=== PATIENT | female | born 1950 | race Caucasian/White ===

== ENCOUNTER → 2016-12-04 | Outpatient (CLI) | payer MEDICARE, OTHER ==
--- NOTE | 2016-12-04 13:16 | XR ---
EXAMINATION TYPE: XR KUB DATE OF EXAM: 12/04/2016 COMPARISON: 01/22/2014 INDICATION: kidney stones TECHNIQUE: Single view abdomen supine view FINDINGS: There is a normal bowel gas pattern. Psoas margins are normal. No organomegaly is present. There is a 1.2 cm calcification over the inferior pole of the right kidney. The right kidney appears small. This was present previously. Post fixation pedicle screws and rods are present L4-5. IMPRESSION: 1. 1.2 cm right renal calcification within a small right kidney
== END ==
LOC: RADXRMAIN 11:25
PROVIDERS: ATTEND Physician Assistant
DX: N28.89 Other specified disorders of kidney and ureter (principal)
CPT/HCPCS: 74000

== ENCOUNTER → 2016-12-24 | Outpatient (CLI) | payer MEDICARE, OTHER ==
[2016-12-24 11:55] LABS: Basophils # (A) 0.1 k/uL (0-0.2); Basophils % (A) 1 %; CH 31.7; CHCM 33.1; Eosinophils # (A) 0.2 k/uL (0-0.7); Eosinophils % (A) 2 %; HCT 48.9 % (34.0-46.0); HGB 15.7 gm/dL (11.4-16.0); Luc # (Auto) 0.17; Luc % (Auto) 2; Lymphocytes # (A) 2.6 k/uL (1.0-4.8); Lymphocytes % (A) 29 %; MCH 30.9 pg (25.0-35.0); MCHC 32.1 g/dL (31.0-37.0); MCV 96.4 fL (80.0-100.0); Monocytes # (A) 0.8 k/uL (0-1.0); Monocytes % (A) 8 %; Neutrophils # (A) 5.3 k/uL (1.3-7.7); Neutrophils % (A) 59 %; RBC 5.07 m/uL (3.80-5.40); RDW 14.5 % (11.5-15.5); WBC 9.1 k/uL (3.8-10.6); WBC (Perox) 8.34
[2016-12-24 12:06] LABS: Anion Gap 10 mmol/L; Blood Urea Nitrogen 23 mg/dL (7-17); Calcium 9.7 mg/dL (8.4-10.2); Carbon Dioxide 23 mmol/L (22-30); Chloride 109 mmol/L (98-107); Glucose 81 mg/dL (74-99); Non-African American GFR(MDRD) >60 (>60 ml/min/1.73 sqM); Potassium 4.8 mmol/L (3.5-5.1); Sodium 142 mmol/L (137-145)
== END | disposition home or self-care (01) ==
LOC: LABPAT 11:20
PROVIDERS: ATTEND Physician Assistant
DX: Z01.812 Encounter for preprocedural laboratory examination (principal); N20.0 Calculus of kidney; E78.5 Hyperlipidemia, unspecified; E03.9 Hypothyroidism, unspecified
CPT/HCPCS: 36415; 80048; 85025

== ENCOUNTER 2016-12-31 12:59 | Day surgery (SDC) | payer MEDICARE, OTHER ==
[2016-12-26 09:46] VITALS: BMI 39.1
[~2016-12-31 12:59] MED LIST: DEXAMETHASONE SOD PHOSPHATE 10 MG/ML 1 ML VIAL IV ONE; LACTATED RINGERS 1,000 ML IV SCH; LIDOCAINE 1% 20 ML VIAL (10MG/ML) FOR IV START INTRADERMA PRN; Pre Op ABX Message 1 EACH MISC MISCELLANE ONE
--- NOTE | 2016-12-31 13:06 | XR ---
EXAMINATION TYPE: XR KUB DATE OF EXAM: 12/31/2016 12:53 PM CLINICAL HISTORY: 12/04/2016 TECHNIQUE: Single supine KUB image of the abdomen is obtained. COMPARISON: 12/04/2016 FINDINGS: Scattered gas is seen in non-distended small bowel loops. Gas and fecal material is seen in non-distended colon. 1.0 cm right midpole renal calculus is present as well as at least 2 other smal ler subcentimeter renal calculi are seen within the right kidney. No left-sided renal calculi are see n. Lung bases are clear and the osseous structures are intact. IMPRESSION: 1. Right renal calculus measuring 1.0 cm with additional subcentimeter right renal calculi (at least 2). 2. No left-sided radiopaque renal calculi.
[2016-12-31 13:44] VITALS: BP 120/70; PULSE 73; RESP 18; TEMP 98.4
[2016-12-31 15:10] LABS: Appearance,Urine Cloudy (Clear); Bacteria,Urine Occasional /hpf; Bilirubin,Urine Negative (Negative); Glucose,Urine (UA) Negative (Negative); Ketones,Urine Trace (Negative); Leukocyte Esterase,Urine Large (Negative); Mucus,Urine Rare /hpf; Nitrite,Urine Negative (Negative); Particle Count 9321; Protein,Urine Trace (Negative); RBC,Urine 10 /hpf (0-5); Specific Gravity,Urine 1.015 (1.001-1.035); Squamous Epithelial Cell,Urine 1 /hpf (0-4); UA Billing (MACRO vs. MICRO) MICRO; Urobilinogen,Urine <2.0 mg/dL (<2.0); WBC,Urine >182 /hpf (0-5)
== END 2016-12-31 15:35 | disposition home or self-care (01) ==
LOC: ORWHC2ENDO 12:59
PROVIDERS: ATTEND Urology
DX: N23 Unspecified renal colic (principal); R82.90 Unspecified abnormal findings in urine; I10 Essential (primary) hypertension; I20.9 Angina pectoris, unspecified; Q79.8 Other congenital malformations of musculoskeletal system; E03.9 Hypothyroidism, unspecified; E78.00 Pure hypercholesterolemia, unspecified; E78.5 Hyperlipidemia, unspecified; Z87.442 Personal history of urinary calculi; D35.00 Benign neoplasm of unspecified adrenal gland; Z79.899 Other long term (current) drug therapy
CPT/HCPCS: 81001; 87086; 87077; 87186; 74000; J1100

== ENCOUNTER → 2017-01-28 | Outpatient (CLI) | payer MEDICARE, OTHER ==
--- NOTE | 2017-01-28 10:33 | XR ---
EXAMINATION TYPE: XR abdomen 1V DATE OF EXAM: 01/28/2017 HISTORY: 12/31/2016 Comparison: Pt. states right side lithotripsy x 1 week ago. Single KUB is submitted for interpretation. Findings: Right renal calculi: Several sub-5 mm calculi noted to overlie the lower pole of the right kidney poo rly demonstrated due to overlying bowel content. Previously noted 1 cm calculus is not clearly visual ized at this time. Right ureteral calculi: None Visualized. Left renal calculi: None Visualized. Left ureteral calculi: None Visualized. Pelvic calcifications: None Visualized. Bowel gas pattern is unremarkable. No free air. No mass effects. IMPRESSION: 1. Several sub-5 mm calculi noted to overlie the lower pole of the right kidney poorly demonstrated d ue to overlying bowel content. Previously noted 1 cm calculus is not clearly visualized at this time.
== END | disposition home or self-care (01) ==
LOC: RADXRMAIN 09:57
PROVIDERS: ATTEND Urology
DX: N20.0 Calculus of kidney (principal)
CPT/HCPCS: 74000

== ENCOUNTER → 2018-03-27 | Outpatient (CLI) | payer MEDICARE, OTHER ==
--- NOTE | 2018-03-27 09:42 | XR ---
EXAMINATION TYPE: XR abdomen 1V DATE OF EXAM: 03/27/2018 CLINICAL DATA: 68 year-old female right kidney stones, [facility] COMPARISON: 01/28/2017 FINDINGS: Lung bases are clear. No evidence for free intraperitoneal air. A few scattered colonic air-fluid levels suggesting liquid stool. Cholecystectomy clips. Very vague densities are present in the right mid abdomen measuring up to 4 mm. These may represent n onobstructing right-sided renal calculi. Degenerative changes of the SI joints. L4-L5 posterior lumbar fusion as evidenced. No dilated small bowel loops. IMPRESSION: 1. Vague, small densities in the right mid abdomen suggest underlying right-sided nephrolithiasis. 2. Scattered colonic air-fluid levels suggesting liquid stool. This could reflect enteritis or ileus .
== END ==
LOC: RADXRMAIN 08:24
PROVIDERS: ATTEND Urology
DX: N20.2 Calculus of kidney with calculus of ureter (principal)
CPT/HCPCS: 74018

== ENCOUNTER → 2018-11-06 | Outpatient (CLI) | payer MEDICARE, OTHER ==
--- NOTE | 2018-11-06 10:54 | XR ---
EXAMINATION TYPE: XR KUB DATE OF EXAM: 11/06/2018 10:48 AM CLINICAL HISTORY: History of staghorn calculus with right flank pain. TECHNIQUE: Two supine KUB images of the abdomen are obtained. COMPARISON: Abdominal x-ray March 27, 2018. FINDINGS: On current study there is better visualization of 3-4 scattered right-sided renal calculi m easuring up to 5 mm in size. Left-sided renal calculi not clearly identified. Bridging spurs in the thoracolumbar spine are present. Overall nonspecific but likely nonobstructive bowel gas pattern. Mild to moderate narrowing both hip joints, right greater than left. Postsurgical change L4-L5 level. Overlying bra strap upper abdomen noted. Cholecystectomy clips show motion artifa ct degradation. IMPRESSION: Right-sided nephrolithiasis redemonstrated.
== END | disposition home or self-care (01) ==
LOC: RADXRMAIN 10:22
PROVIDERS: ATTEND Urology
DX: N20.0 Calculus of kidney (principal)
CPT/HCPCS: 74018

== ENCOUNTER 2019-01-24 12:21 | Inpatient (IN) | payer MEDICARE, OTHER ==
--- NOTE | 2019-01-24 12:51 | ED ---
Chest Pain HPI - General Chief Complaint: Chest Pain Stated Complaint: CHEST PAIN, SOB Time Seen by Provider: 01/24/19 12:25 Source: patient Mode of arrival: wheelchair Limitations: no limitations - History of Present Illness Initial Comments: The patient is a 68-year-old female past medical history of asthma, CVA and hypertension who presents emergency department with reported chest pain, nausea, shortness of breath and headache. She states that the symptoms started today when she woke up. She reported having tightness in her chest which she thought was related to her asthma. She's been using her nebulizers at home without improvement in her symptoms. Does admit to a mild cough. No fevers or chills. No ripping or tearing sensation to her back. Denies a history of DVT or PE. She denies any lower extremity edema. Began feeling nauseated and has had multiple episodes of belching. She took 2 Tylenol which she stated afterwards developed a "splitting" headache. She denies any neck pain or stiffness. No fevers or chills. No sick contacts or recent travel. Denies any dizziness. No unilateral numbness or weakness. No vomiting. Denies diaphoresis. No weakness in her upper or lower extremities. Denies any abdominal pain or changes in her bowel or bladder habits. There are no other alleviating, precipitating or modifying factors - Related Data Home Medications Medication Instructions Recorded Confirmed Gabapentin [Neurontin] 100 mg PO QAM 09/11/13 01/24/19 Clopidogrel [Plavix] 75 mg PO HS 09/21/13 01/24/19 Montelukast [Singulair] 10 mg PO HS 05/02/15 01/24/19 Thyroid,Pork [[place] Thyroid] 60 mg PO DAILY 05/31/15 01/24/19 Diltiazem HCl 60 mg PO TID 01/24/19 01/24/19 Furosemide [Lasix] 20 mg PO DAILY 01/24/19 01/24/19 Gabapentin [Neurontin] 200 mg PO HS 01/24/19 01/24/19 Previous Rx's Medication Instructions Recorded Cefuroxime Axetil [Ceftin] 500 mg PO BID 3 Days #6 tab 01/27/19 guaiFENesin SYRUP 100MG/5ML 200 mg PO Q6H PRN #12 cup 01/27/19 [Robitussin] predniSONE 10 mg PO DIRECTED #30 tab 01/27/19 Allergies Allergy/AdvReac Type Severity Reaction Status Date / Time adhesive Allergy Rash/Hives Verified 01/24/19 15:00 arsenic [Arsenic] Allergy Anaphylaxis Verified 01/24/19 15:00 Iodinated Contrast Media Allergy Anaphylaxis Verified 01/24/19 15:00 [Iodinated Contrast Media - IV Dye] ear drops Allergy Unknown SWELLING Uncoded 12/31/16 13:31 OF EAR. IV therapy for UTI AdvReac Unknown CPK Uncoded 12/31/16 13:31 ELEVATED AND MUSCLE WEAKNESS. Review of Systems ROS Statement: Those systems with pertinent positive or pertinent negative responses have been documented in the HPI. ROS Other: All systems not noted in ROS Statement are negative. EKG Findings - EKG Comments: EKG Findings:: EKG demonstrates a sinus rhythm with occasional premature ventricular complexes. There is a right bundle branch block. Rate of 89. UT interval 180. QRS 152. QTC of 49. No acute ST segment elevations. Compared patient's previous exam and patient did have a right bundle branch block in 2016 Past Medical History Past Medical History: Asthma, CVA/TIA, Hypertension, Liver Disease, Renal Disease, Skin Disorder, Thyroid Disorder Additional Past Medical History / Comment(s): Recent UTI and pneumonia-resolved now. 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 Still has pancreas and kidney problems. CVAx2 last in 2010- lt index finger still numb. hx eczema. Hx kidney stones. 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 torn retina History of Any Multi-Drug Resistant Organisms: MRSA Date of last positivie culture/infection: 2011 MDRO Source:: lt foot Past Surgical History: Adenoidectomy, Appendectomy, Back Surgery, Cholecystectomy, Heart Catheterization, Hysterectomy, Joint Replacement, Orthopedic Surgery, Tonsillectomy Additional Past Surgical History / Comment(s): Hx back surgery with rods and screws 1991, had lt foot surgery 30 years ago then had lt foot surgery 2011 and developed MRSA at surgical site. Hx Repair of Rt Renal artery aneurysm , then had stents inserted into rt renal artery. Also has stents between pancreas and bile duct r/t arsenic exposure. 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 Past Psychological History: No Psychological Hx Reported Smoking Status: Never smoker Past Alcohol Use History: Occasional Past Drug Use History: None Reported - Past Family History Father Family Medical History: Cancer Mother Family Medical History: Cancer, CVA/TIA Additional Family Medical History / Comment(s): melanoma General Exam Limitations: no limitations General appearance: alert, in no apparent distress Head exam: Present: atraumatic, normocephalic, normal inspection Eye exam: Present: normal appearance, PERRL, EOMI. Absent: scleral icterus, conjunctival injection, periorbital swelling ENT exam: Present: normal exam, mucous membranes moist Neck exam: Present: normal inspection. Absent: tenderness, meningismus, lymphadenopathy Respiratory exam: Present: wheezes, decreased breath sounds, prolonged expiratory. Absent: respiratory distress, rales, rhonchi, stridor Cardiovascular Exam: Present: regular rate, normal rhythm, normal heart sounds. Absent: systolic murmur, diastolic murmur, rubs, gallop, clicks GI/Abdominal exam: Present: soft, normal bowel sounds. Absent: distended, tenderness, guarding, rebound, rigid Extremities exam: Present: normal inspection, full ROM, normal capillary refill. Absent: tenderness, pedal edema, joint swelling, calf tenderness Back exam: Present: normal inspection Neurological exam: Present: alert, oriented X3, CN II-XII intact Psychiatric exam: Present: normal affect, normal mood Skin exam: Present: warm, dry, intact, normal color. Absent: rash Course Vital Signs 01/24/19 01/24/19 01/24/19 12:24 12:37 13:00 Temperature 98 F Pulse Rate 88 85 89 Respiratory 18 23 20 Rate Blood Pressure 125/74 140/98 O2 Sat by Pulse 94 L 95 93 L Oximetry 01/24/19 01/24/19 01/24/19 13:30 13:32 13:49 Temperature Pulse Rate 85 87 92 Respiratory 16 16 Rate Blood Pressure 152/93 155/92 O2 Sat by Pulse 92 L 99 Oximetry 01/24/19 01/24/19 01/24/19 13:50 15:30 17:22 Temperature Pulse Rate 89 93 Respiratory 18 Rate Blood Pressure 146/82 O2 Sat by Pulse 90 L 88 L Oximetry 01/24/19 18:37 Temperature 98.7 F Pulse Rate 92 Respiratory 16 Rate Blood Pressure 148/87 O2 Sat by Pulse 94 L Oximetry Chest Pain MDM - MDM On arrival the patient was placed in room 13. A thorough history and physical exam was performed. Patient was satting 92% on room air. I did recommend a DuoNeb breathing treatment. Peripheral IV was established. The patient was given 10 mg of Reglan, 25 mg of Benadryl, 1 g of magnesium and 125 mg of Solu- Medrol. I recommended laboratory studies first patient did agree to. White count is 22,000. Coags are normal. CMP is unremarkable. First troponin is negative. BNP is 459. Chest x-ray is obtained and according to radiologist's there are coarse lung markings with relative poor inspiration which appears similar old exam. I do compare the patient's chest x-ray to her previous and it does appear markedly different in my opinion. The patient does have bilateral hazy opacities noted in the lower lung oliva. This may represent interstitial fluid versus infiltrate. Because the patient does have an elevated white blood cell count I did recommend blood cultures and initiating the patient Rocephin and azithromycin as she hasn't been hospitalized recently. Patient did agree to this. After her breathing treatment was administered I did reevaluate her. Her pulse ox is worsens in the patient stats 85-88% on room air. She is placed on 2 L nasal cannula. The patient was also for a CT of her brain because of her new onset migraine. Does demonstrate multiple old bilateral cortical infarct with no active disease process. I discussed diagnosis, differential and treatment options. The patient reports that her headache is gone at this time. I informed her with the elevated white blood cell count report of headache, meningitis needs to be ruled out. Patient refused a lumbar puncture. She is aware of refusing the procedure and the risks to include permanent disability and even . is at bedside agrees with her decision. I will treat the patient's white blood cell count to tracheobronchitis versus pneumonia. I called and discussed the case with Dr. Benton who accepted admission for the patient. Bridging orders are placed. I will continue breathing treatments every 4 hours. Also continue steroids. He requested that I consult cardiology and pulmonology. The patient was given 40 mg of Lasix. She remained in stable condition was transported to the floor Disposition Clinical Impression: Chest pain, Hypoxia, Leukocytosis Disposition: ADMITTED IP TO THIS HOSP Condition: Stable Is patient prescribed a controlled substance at d/c from ED?: No Decision to Admit Reason: Admit from EC Decision Date: 01/24/19 Decision Time: 17:34
[2019-01-24] MEDS ORDERED: METOCLOPRAMIDE 5 MG/ML 2 ML VIAL IVP STA (13:06)
[2019-01-24] MEDS ORDERED: methylPREDNISolone SOD SUCCI 125 MG/2 ML VIAL IV STA (13:06)
[2019-01-24] MEDS ORDERED: diphenhydrAMINE 50 MG/ML 1 ML VIAL IVP STA (13:06)
[2019-01-24] MEDS ORDERED: MAGNESIUM SULFATE-D5W PMX 1 GM in DEXTROSE/WATER 1 100ML.BAG IVPB ONE (13:07)
[2019-01-24] MEDS ORDERED: IPRATROPIUM-ALBUTEROL 3 ML NEB INHALATION STA (13:08)
--- NOTE | 2019-01-24 14:46 | XR ---
EXAMINATION TYPE: XR chest 2V DATE OF EXAM: 01/24/2019 COMPARISON: 06/02/2015 HISTORY: Chest pain TECHNIQUE: Frontal and lateral views of the chest are obtained. FINDINGS: There is some coarsening of the lung markings. Heart size is normal. There is no pleural e ffusion. Bony thorax is intact. IMPRESSION: Coarse lung markings with relative poor inspiration. This appears similar to old exam. N o pulmonary consolidation or heart failure. Mild atelectasis left lung base unchanged.
--- NOTE | 2019-01-24 14:49 | CT ---
EXAMINATION TYPE: CT brain wo con DATE OF EXAM: 01/24/2019 COMPARISON: None HISTORY: Dizziness and SEE CT DLP: 1182.4 mGycm Automated exposure control for dose reduction was used. FINDINGS: Ventricles of normal size. There is no mass effect nor midline shift. There is 2 centimeter cortical hypodensity right posterior temporal lobe. There is 3 cm cortical hypodensity left occipital lobe. Th is is consistent with old infarcts. There is 2.5 cm cortical hypodensity left posterior frontal lobe consistent with old cortical infarct. There is no midline shift. There is no sign of intracranial hem orrhage. There is 1.5 cm hypodense area right cerebellar hemisphere consistent with old cortical infa rct. The cerebellar tentorium. IMPRESSION: MULTIPLE OLD BILATERAL CORTICAL INFARCTS. NO HEMORRHAGE.
[2019-01-24 15:06] LABS: INR 0.9 (<1.2); Prothrombin Time 9.7 sec (9.0-12.0)
[2019-01-24 15:10] LABS: Albumin 4.1 g/dL (3.5-5.0); Calcium 9.5 mg/dL (8.4-10.2); Magnesium 2.2 mg/dL (1.6-2.3); Potassium 4.1 mmol/L (3.5-5.1); Total Bilirubin 0.8 mg/dL (0.2-1.3); Total Protein 7.8 g/dL (6.3-8.2)
[2019-01-24 15:21] LABS: Basophils # (A) 0.2 k/uL (0-0.2); Basophils % (A) 1 %; Eosinophils # (A) 0.1 k/uL (0-0.7); Eosinophils % (A) 0 %; HCT 45.4 % (34.0-46.0); HGB 15.3 gm/dL (11.4-16.0); Lymphocytes # (A) 3.1 k/uL (1.0-4.8); Lymphocytes % (A) 14 %; MCH 31.7 pg (25.0-35.0); MCHC 33.7 g/dL (31.0-37.0); MCV 94.3 fL (80.0-100.0); Mean Platelet Volume 7.3; Monocytes # (A) 1.3 k/uL (0-1.0); Monocytes % (A) 6 %; Neutrophils # (A) 17.1 k/uL (1.3-7.7); Neutrophils % (A) 77 %; Platelet Count 264 k/uL (150-450); RBC 4.81 m/uL (3.80-5.40); RDW 13.2 % (11.5-15.5); WBC 22.2 k/uL (3.8-10.6)
[2019-01-24] MEDS ORDERED: cefTRIAXone IN SWFI 1,000 MG/10 ML SYRINGE IVP STA (16:51)
[2019-01-24] MEDS ORDERED: AZITHROMYCIN 500 MG in SODIUM CHLORIDE 0.9% 250 ML IVPB STA (16:51)
[2019-01-24] MEDS ORDERED: NALOXONE 0.4 MG/ML 1 ML VIAL IV PRN (17:02)
[2019-01-24] MEDS ORDERED: ACETAMINOPHEN TAB 325 MG TAB PO PRN (17:02)
[2019-01-24] MEDS ORDERED: IBUPROFEN 400 MG TAB PO PRN (17:02)
[2019-01-24] MEDS ORDERED: FUROSEMIDE 10 MG/ML 4 ML VIAL IV STA (17:38)
[2019-01-24] MEDS: MONTELUKAST 10 MG TAB PO SCH (20:10)
[2019-01-24] MEDS: CLOPIDOGREL 75 MG TAB PO SCH (20:10)
[2019-01-24] MEDS: DILTIAZEM ORAL 60 MG TAB PO SCH (20:10)
[2019-01-24] MEDS: GABAPENTIN 100 MG CAP PO SCH (20:10)
[2019-01-24] MEDS: IPRATROPIUM-ALBUTEROL 3 ML NEB INHALATION SCH ×2 (20:21→23:45)
[2019-01-24 20:44] LABS: Glucose,Whole Blood 215 mg/dL (75-99)
[2019-01-24] MEDS: INSULIN ASPART (NovoLOG) 100 UNIT/ML VIAL SQ SCH (20:46)
--- NOTE | 2019-01-24 21:16 | P.HPIM ---
History of Present Illness H&P Date: 01/24/19 Chief Complaint: Chest discomfort and headache Patient is a 68-year-old female with a known history of asthma, CVA/TIA, hypothyroidism, hypertension, history of ITP and splenectomy at age 2 and morbid obesity came to ER with the complaints of chest discomfort and shortness of breath since last night. Today morning she woke up with worsening symptoms of chest tightness which she felt more like her previous asthma exacerbation. Patient tried using nebulizers at home without much improvement. Patient also presented with headache to ER. Denied any fever or chills. Patient does have cough without sputum production. No nausea vomiting or abdominal pain or diarrhea. No dysuria. Denied any worsening leg swelling. Patient was also having tried using belching. Denied any recent illnesses or upper respiratory infections. No sick contacts or recent travel. Patient says that she was wheezing at home. Patient was given a dose of IV Solu-Medrol and breathing treatments in the ER. Patient was also hypoxic with pulse ox 88% on room air. Patient is not on home oxygen. Patient follows with Dr. ROSEANN Knapp as an outpatient. Patient says that she had fluid in the lung sometime in June 2018. Patient does take Lasix 20 mg daily at home. BNP 459 on admission. Troponin 1 negative. WBC 22.2 Chest x-ray showed Course lung markings with related to poor inspiration. this appears to be similar to old exam. No pulmonary consolidation or heart failure. Mild left base atelectasis unchanged. CT head showed multiple bilateral old cortical infarcts. No hemorrhages. Review of Systems Constitutional: Patient denies any fever or chills . No generalized weakness or weight loss. Abdomen: Patient denied nausea vomiting and diarrhea and abdominal pain. Cardiovascular: Patient denies any chest pain . Does have chest discomfort. no palpitations. Respiratory: Patient does have cough with minimal sputum production and shortness of breath Neurologic: Patient denied any numbness or tingling. patient did have headache. Musculoskeletal: Patient denies any complaints of joint swelling or deformity. Skin: Negative Psychiatric: Negative Endocrine: No heat or cold intolerance. No recent weight gain. Genitourinary: No dysuria or hematuria. All other 14 point ROS negative except the above Past Medical History Past Medical History: Asthma, CVA/TIA, Hypertension, Liver Disease, Renal Disease, Skin Disorder, Thyroid Disorder Additional Past Medical History / Comment(s): Recent UTI and pneumonia-resolved now. 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 Still has pancreas and kidney problems. CVAx2 last in 2010- lt index finger still numb. hx eczema. Hx kidney stones. 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 torn retina History of Any Multi-Drug Resistant Organisms: MRSA Date of last positivie culture/infection: 2011 MDRO Source:: lt foot Past Surgical History: Adenoidectomy, Appendectomy, Back Surgery, Cholecystectomy, Heart Catheterization, Hysterectomy, Joint Replacement, Orthopedic Surgery, Tonsillectomy Additional Past Surgical History / Comment(s): Hx back surgery with rods and screws 1991, had lt foot surgery 30 years ago then had lt foot surgery 2011 and developed MRSA at surgical site. Hx Repair of Rt Renal artery aneurysm , then had stents inserted into rt renal artery. Also has stents between pancreas and bile duct r/t arsenic exposure. 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 Past Psychological History: No Psychological Hx Reported Smoking Status: Never smoker Past Alcohol Use History: Occasional Past Drug Use History: None Reported - Past Family History Father Family Medical History: Cancer Mother Family Medical History: Cancer, CVA/TIA Additional Family Medical History / Comment(s): melanoma Medications and Allergies Home Medications Medication Instructions Recorded Confirmed Type Gabapentin [Neurontin] 100 mg PO QAM 09/11/13 01/24/19 History Clopidogrel [Plavix] 75 mg PO HS 09/21/13 01/24/19 History Montelukast [Singulair] 10 mg PO HS 05/02/15 01/24/19 History Thyroid,Pork [[place] Thyroid] 60 mg PO DAILY 05/31/15 01/24/19 History Diltiazem HCl 60 mg PO TID 01/24/19 01/24/19 History Furosemide [Lasix] 20 mg PO DAILY 01/24/19 01/24/19 History Gabapentin [Neurontin] 200 mg PO HS 01/24/19 01/24/19 History Allergies Allergy/AdvReac Type Severity Reaction Status Date / Time adhesive Allergy Rash/Hives Verified 01/24/19 15:00 arsenic [Arsenic] Allergy Anaphylaxis Verified 01/24/19 15:00 Iodinated Contrast Media Allergy Anaphylaxis Verified 01/24/19 15:00 [Iodinated Contrast Media - IV Dye] ear drops Allergy Unknown SWELLING Uncoded 12/31/16 13:31 OF EAR. IV therapy for UTI AdvReac Unknown CPK Uncoded 12/31/16 13:31 ELEVATED AND MUSCLE WEAKNESS. Physical Exam Vitals: Vital Signs Temp Pulse Pulse Resp BP BP Pulse Ox 01/24/19 20:21 49 L 01/24/19 19:35 98 F 109 H 20 147/83 93 L 01/24/19 18:37 98.7 F 92 16 148/87 94 L 01/24/19 17:22 88 L 01/24/19 15:30 93 18 146/82 90 L 01/24/19 13:50 89 01/24/19 13:49 92 16 155/92 99 01/24/19 13:32 87 01/24/19 13:30 85 16 152/93 92 L 01/24/19 13:00 89 20 140/98 93 L 01/24/19 12:37 85 23 95 01/24/19 12:24 98 F 88 18 125/74 94 L Intake and Output 01/24/19 01/24/19 01/24/19 06:59 14:59 22:59 Other: Weight 127.006 kg PHYSICAL EXAMINATION: Patient is lying in the bed comfortably, no acute distress, awake alert and oriented.. HEENT: Normocephalic. Neck is supple. Pupils reactive. Nostrils clear. Oral cavity is moist. Ears reveal no drainage. Neck reveals no JVD, carotid bruits, or thyromegaly. CHEST EXAMINATION: Trachea is central. Symmetrical expansion. Left basilar crackles and diffuse coarse breath sounds. Minimal expiratory wheeze. CARDIAC: Normal S1, S2 with no gallops. No murmurs ABDOMEN: Soft. Obese., Bowel sounds normal. No organomegaly. No abdominal bruits. Extremities: 1+ edema. No clubbing or cyanosis Neurologically awake, alert, oriented x3 with well-coordinated movements. No focal deficits noted Skin: No rash or skin lesions. Psychiatric: Coperative. Nonsuicidal Musculoskeletal: No joint swelling or deformity. Normal range of motion. Results CBC & Chem 7: 01/24/19 14:24 01/24/19 14:24 Labs: Abnormal Lab Results - Last 24 Hours (Table) 01/24/19 01/24/19 01/24/19 Range/Units 14:24 14:24 20:43 WBC 22.2 H (3.8-10.6) k/uL Neutrophils # 17.1 H (1.3-7.7) k/uL Monocytes # 1.3 H (0-1.0) k/uL BUN 20 H (7-17) mg/dL POC Glucose (mg/dL) 215 H (75-99) mg/dL Thrombosis Risk Factor Assmnt - DVT/VTE Prophylaxis DVT/VTE Prophylaxis: Pharmacologic Prophylaxis ordered Assessment and Plan Assessment: Chest discomfort and shortness of breath likely due to acute asthma exacerbation Acute hypoxic respiratory failure secondary to asthma exacerbation Possible left lower lobe pneumonia with significant leukocytosis at 22.2 Headache on admission. 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 Continue with antibiotics in the form of ceftriaxone and azithromycin. BNP level was not very elevated at 495. Was given a dose of IV Lasix. Continue with home dose of Lasix 20 mg daily. Check urinalysis. Continue with oxygen therapy as needed and follow closely. Pulmonary and cardiology was consulted. Further recommendations based on the clinical course. Prognosis is guarded at this time. Time with Patient: Greater than 30
[2019-01-24] MEDS: HEPARIN SODIUM,PORCINE 5,000 UNIT/ML 1 ML VIAL SQ SCH (23:05)
[2019-01-25 03:16] LABS: Basophils % (A) 0 %; Eosinophils # (A) 0.1 k/uL (0-0.7); Eosinophils % (A) 1 %; HCT 44.3 % (34.0-46.0); HGB 14.9 gm/dL (11.4-16.0); Lymphocytes # (A) 1.3 k/uL (1.0-4.8); Lymphocytes % (A) 9 %; MCH 31.5 pg (25.0-35.0); MCHC 33.8 g/dL (31.0-37.0); MCV 93.4 fL (80.0-100.0); Mean Platelet Volume 6.3; Monocytes # (A) 0.1 k/uL (0-1.0); Monocytes % (A) 1 %; Neutrophils # (A) 12.2 k/uL (1.3-7.7); Neutrophils % (A) 88 %; Platelet Count 319 k/uL (150-450); RBC 4.74 m/uL (3.80-5.40); RDW 13.2 % (11.5-15.5); WBC 13.8 k/uL (3.8-10.6)
[2019-01-25 03:28] LABS: Appearance,Urine Clear (Clear); Bilirubin,Urine Negative (Negative); Blood,Urine Negative (Negative); Color,Urine Yellow; Glucose,Urine (UA) Negative (Negative); Hyaline Casts,Urine 5 /lpf (0-2); Ketones,Urine Negative (Negative); Leukocyte Esterase,Urine Large (Negative); Mucus,Urine Rare /hpf; Nitrite,Urine Negative (Negative); Protein,Urine Negative (Negative); RBC,Urine 3 /hpf (0-5); Specific Gravity,Urine 1.014 (1.001-1.035); Urobilinogen,Urine <2.0 mg/dL (<2.0)
[2019-01-25 03:34] LABS: Calcium 9.2 mg/dL (8.4-10.2); Potassium 3.7 mmol/L (3.5-5.1)
[2019-01-25] MEDS: IPRATROPIUM-ALBUTEROL 3 ML NEB INHALATION SCH ×5 (03:57→20:37)
[2019-01-25 06:27] LABS: Glucose,Whole Blood 169 mg/dL (75-99)
[2019-01-25] MEDS: INSULIN ASPART (NovoLOG) 100 UNIT/ML VIAL SQ SCH ×4 (06:39→21:24)
[2019-01-25] MEDS: BUDESONIDE 0.5 MG/2 ML NEBU INHALATION SCH ×2 (07:11→20:37)
[2019-01-25] MEDS: GABAPENTIN 100 MG CAP PO SCH ×2 (08:19→20:21)
[2019-01-25] MEDS: methylPREDNISolone SOD SUCCI 40 MG/ML 1 ML VIAL IV SCH ×3 (08:19→23:57)
[2019-01-25] MEDS: HEPARIN SODIUM,PORCINE 5,000 UNIT/ML 1 ML VIAL SQ SCH ×3 (08:19→23:57)
[2019-01-25] MEDS: DILTIAZEM ORAL 60 MG TAB PO SCH ×3 (08:19→20:21)
[2019-01-25] MEDS: THYROID, PORK 30 MG TAB PO SCH (08:20)
[2019-01-25] MEDS ORDERED: FUROSEMIDE 20 MG TAB PO SCH (09:00)
[2019-01-25] MEDS: FUROSEMIDE 20 MG TAB PO SCH (09:29)
--- NOTE | 2019-01-25 11:30 | P.CRDCN ---
History of Present Illness History of present illness: HISTORY OF PRESENTING ILLNESS This is a pleasant 68-year-old female past medical history significant for hypertension, dyslipidemia, hypothyroidism, PFO and CVA. She presented with chest pain, shortness of breath and cough. She follows in the office with Dr. Thomas perkins. We have been asked to see him in consultation for heart failure. She is seen and examined sitting up resting comfortably in bed in no acute distress. She states for the previous 2 days she has been struggling with her asthma at home and has been wheezing significantly. She also describes a tight sensation in the midsternal region while she is wheezing and mild shortness of breath. The shortness of breath is not related to activity or exertion. She denies PND or orthopnea. She is coughing however it is a dry cough with no significant sputum production. She denies fever or chills at home. DIAGNOSTICS EKG reveals sinus mechanism, right bundle branch block, frequent PVCs. Chest xray coarse lung markings with poor inspiration similar to previous exam with no pulmonary consolidation or heart failure. Laboratory reviewed, we have on admission 22.2, repeat today 13.8, hemoglobin 14 .9, platelets 319, sodium 142, potassium 3.7, creatinine 0.79, magnesium 2.2, cardiac enzymes negative 3, proBNP 459. Current cardiac medications include Plavix 75 mg daily secondary to CVA, Lasix 20 mg daily and diltiazem 60 mg 3 times a day. Most recent echocardiogram obtained in the office June 2018 reveals preserved LV systolic function with ejection fraction 55%. Most recent stress test performed in the office with a dobutamine stress echocardiogram was negative for stress-induced ischemia. REVIEW OF SYSTEMS At the time of my exam: CONSTITUTIONAL: Denies fever or chills. CARDIOVASCULAR: Denies chest pain, shortness of breath, orthopnea, PND or palpitations. RESPIRATORY: Complains of cough. GASTROINTESTINAL: Denies abdominal pain, diarrhea, constipation, nausea or vomiting. MUSCULOSKELETAL: Denies myalgias. NEUROLOGIC: Denies numbness, tingling or weakness. ENDOCRINE: Denies fatigue, weight change, polydipsia or polyurina. GENITOURINARY: Denies burning, hematuria or urgency with micturation. HEMATOLOGIC: Denies history of anemia or bleeding. PHYSICAL EXAMINATION Blood pressure 122/58 heart rate in the afebrile and maintaining oxygen saturaiton on nasal cannula. CONSTITUTIONAL: No apparent distress. HEENT: Head is normocephalic. Pupils are equal, round. Sclerae anicteric. Mucous membranes of the mouth are moist. No JVD. No carotid bruit. CHEST EXAMINATION: Lungs are clear to auscultation. No chest wall tenderness is noted on palpation or with deep breathing. HEART EXAMINATION: Regular rate and rhythm. S1, S2 heard. No murmurs, gallops or rub. ABDOMEN: Soft, nontender. Positive bowel sounds. EXTREMITIES: 2+ peripheral pulses, bilateral lower extremity non-pitting edema with ANTONY hose in place and no calf tenderness. NEUROLOGIC EXAMINATION: Patient is awake, alert and oriented x3. ASSESSMENT Chest pain, atypical for angina. An acute coronary event has been ruled out. Clinically euvolemic. No heart failure. Acute asthma exacerbation Leukocytosis Dyslipidemia Hypertension CVA History of ITP and spleenectomy Morbid obesity, BMI 41 PLAN An acute coronary event has been ruled out. Resume home dose of PO lasix Ongoing medical management and evaluation per primary care team. Follow up with Dr. Knapp upon discharge, will consider outpatient stress testing once asthma symptoms have improved. Thank you kindly for this consultation. Nurse Practitioner note has been reviewed, I agree with a documented findings and plan of care. Patient was seen and examined. Past Medical History Past Medical History: Asthma, CVA/TIA, Hypertension, Liver Disease, Renal Disease, Skin Disorder, Thyroid Disorder Additional Past Medical History / Comment(s): Recent UTI and pneumonia-resolved now. 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 Still has pancreas and kidney problems. CVAx2 last in 2010- lt index finger still numb. hx eczema. Hx kidney stones. 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 torn retina History of Any Multi-Drug Resistant Organisms: MRSA Date of last positivie culture/infection: 2011 MDRO Source:: lt foot Past Surgical History: Adenoidectomy, Appendectomy, Back Surgery, Cholecystectomy, Heart Catheterization, Hysterectomy, Joint Replacement, Orthopedic Surgery, Tonsillectomy Additional Past Surgical History / Comment(s): Hx back surgery with rods and screws 1991, had lt foot surgery 30 years ago then had lt foot surgery 2011 and developed MRSA at surgical site. Hx Repair of Rt Renal artery aneurysm , then had stents inserted into rt renal artery. Also has stents between pancreas and bile duct r/t arsenic exposure. 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 Past Psychological History: No Psychological Hx Reported Smoking Status: Never smoker Past Alcohol Use History: Occasional Past Drug Use History: None Reported - Past Family History Father Family Medical History: Cancer Mother Family Medical History: Cancer, CVA/TIA Additional Family Medical History / Comment(s): melanoma Medications and Allergies Home Medications Medication Instructions Recorded Confirmed Type Gabapentin [Neurontin] 100 mg PO QAM 09/11/13 01/24/19 History Clopidogrel [Plavix] 75 mg PO HS 09/21/13 01/24/19 History Montelukast [Singulair] 10 mg PO HS 05/02/15 01/24/19 History Thyroid,Pork [[place] Thyroid] 60 mg PO DAILY 05/31/15 01/24/19 History Diltiazem HCl 60 mg PO TID 01/24/19 01/24/19 History Furosemide [Lasix] 20 mg PO DAILY 01/24/19 01/24/19 History Gabapentin [Neurontin] 200 mg PO HS 01/24/19 01/24/19 History Allergies Allergy/AdvReac Type Severity Reaction Status Date / Time adhesive Allergy Rash/Hives Verified 01/24/19 15:00 arsenic [Arsenic] Allergy Anaphylaxis Verified 01/24/19 15:00 Iodinated Contrast Media Allergy Anaphylaxis Verified 01/24/19 15:00 [Iodinated Contrast Media - IV Dye] ear drops Allergy Unknown SWELLING Uncoded 12/31/16 13:31 OF EAR. IV therapy for UTI AdvReac Unknown CPK Uncoded 12/31/16 13:31 ELEVATED AND MUSCLE WEAKNESS. Physical Exam Vitals: Vital Signs Temp Pulse Pulse Resp BP BP Pulse Ox 01/25/19 11:15 97.9 F 90 20 122/58 94 L 01/25/19 11:08 88 18 01/25/19 10:55 89 18 01/25/19 08:00 97.8 F 115 H 24 110/77 92 L 01/25/19 07:27 92 01/25/19 07:11 100 16 96 01/25/19 04:13 88 01/25/19 03:57 89 90 L 01/25/19 03:20 98.6 F 92 18 127/79 92 L 01/25/19 00:00 88 01/24/19 23:46 89 01/24/19 23:00 98.5 F 93 18 123/79 92 L 01/24/19 20:21 49 L 01/24/19 19:35 98 F 109 H 20 147/83 93 L 01/24/19 19:15 20 01/24/19 18:37 98.7 F 92 16 148/87 94 L 01/24/19 17:22 88 L 01/24/19 15:30 93 18 146/82 90 L 01/24/19 13:50 89 01/24/19 13:49 92 16 155/92 99 01/24/19 13:32 87 01/24/19 13:30 85 16 152/93 92 L 01/24/19 13:00 89 20 140/98 93 L 01/24/19 12:37 85 23 95 01/24/19 12:24 98 F 88 18 125/74 94 L Intake and Output 01/24/19 01/25/19 01/25/19 22:59 06:59 14:59 Intake Total 290 Balance 290 Intake: IV 50 cefTRIAXone 1 gm In 50 Sodium Chloride 0.9% 50 ml @ 100 mls/hr IVPB Q24HR [facility] Rx#:[id number] Oral 240 Other: Weight 127.6 kg Results 01/25/19 03:06 01/25/19 03:06 Cardiac Enzymes 01/24/19 01/24/19 01/24/19 Range/Units 14:24 14:24 20:49 AST 26 (14-36) U/L Troponin I <0.012 <0.012 (0.000-0.034) ng/mL 01/25/19 Range/Units 03:06 AST (14-36) U/L Troponin I <0.012 (0.000-0.034) ng/mL Coagulation 01/24/19 Range/Units 14:24 PT 9.7 (9.0-12.0) sec APTT 24.0 (22.0-30.0) sec CBC 01/24/19 01/25/19 Range/Units 14:24 03:06 WBC 22.2 H 13.8 H (3.8-10.6) k/uL RBC 4.81 4.74 (3.80-5.40) m/uL Hgb 15.3 14.9 (11.4-16.0) gm/dL Hct 45.4 44.3 (34.0-46.0) % Plt Count 264 319 (150-450) k/uL Comprehensive Metabolic Panel 01/24/19 01/25/19 Range/Units 14:24 03:06 Sodium 142 142 (137-145) mmol/L Potassium 4.1 3.7 (3.5-5.1) mmol/L Chloride 107 108 H (98-107) mmol/L Carbon Dioxide 24 26 (22-30) mmol/L BUN 20 H 22 H (7-17) mg/dL Creatinine 0.82 0.79 (0.52-1.04) mg/dL Glucose 97 173 H (74-99) mg/dL Calcium 9.5 9.2 (8.4-10.2) mg/dL AST 26 (14-36) U/L ALT 28 (9-52) U/L Alkaline Phosphatase 117 (38-126) U/L Total Protein 7.8 (6.3-8.2) g/dL Albumin 4.1 (3.5-5.0) g/dL Current Medications Generic Name Dose Route Start Last Admin Trade Name Freq PRN Reason Stop Dose Admin Acetaminophen 650 mg 01/24/19 17:02 Tylenol Tab PO Q6HR PRN Mild Pain or Fever > 100.5 Albuterol/Ipratropium 3 ml 01/24/19 20:00 01/25/19 10:54 Duoneb 0.5 Mg-3 Mg/3 Ml Soln INHALATION 3 ml RT-Q4H MITCH Administration Azithromycin 500 mg 01/25/19 20:00 Zithromax PO Q24H MITCH Budesonide 0.5 mg 01/25/19 08:00 01/25/19 07:11 Pulmicort INHALATION 0.5 mg RT-BID MITCH Administration Clopidogrel Bisulfate 75 mg 01/24/19 21:00 01/24/19 20:10 Plavix PO 75 mg HS MITCH Administration Diltiazem HCl 60 mg 01/24/19 22:00 01/25/19 08:19 Cardizem Oral PO 60 mg TID MITCH Administration Furosemide 20 mg 01/25/19 09:00 01/25/19 09:29 Lasix PO 20 mg DAILY MITCH Administration Gabapentin 200 mg 01/24/19 21:00 01/24/19 20:10 Neurontin PO 200 mg HS MITCH Administration Gabapentin 100 mg 01/25/19 09:00 01/25/19 08:19 Neurontin PO 100 mg QAM MITCH Administration Heparin Sodium (Porcine) 5,000 unit 01/25/19 00:00 01/25/19 08:19 Heparin SQ 5,000 unit Q8HR MITCH Administration Ceftriaxone Sodium 1 gm/ 50 mls @ 100 mls/hr 01/25/19 09:00 01/25/19 09:28 Sodium Chloride IVPB 100 mls/hr Q24HR MITCH Administration Ibuprofen 400 mg 01/24/19 17:02 Motrin PO Q6HR PRN Mild Pain or Fever > 100.5 Insulin Aspart 0 unit 01/24/19 21:00 01/25/19 06:39 Novolog SQ 3 unit ACHS MITCH Administration Protocol Methylprednisolone Sodium Succinate 40 mg 01/25/19 08:00 01/25/19 08:19 Solu-Medrol IV 40 mg Q8HR MITCH Administration Montelukast Sodium 10 mg 01/24/19 21:00 01/24/19 20:10 Singulair PO 10 mg HS MITCH Administration Naloxone HCl 0.2 mg 01/24/19 17:02 Narcan IV Q2M PRN Opioid Reversal Thyroid 60 mg 01/25/19 09:00 01/25/19 08:20 [place] Thyroid PO 60 mg DAILY MITCH Administration Intake and Output 01/24/19 01/25/19 01/25/19 22:59 06:59 14:59 Intake Total 290 Balance 290 Intake: IV 50 cefTRIAXone 1 gm In 50 Sodium Chloride 0.9% 50 ml @ 100 mls/hr IVPB Q24HR [facility] Rx#:[id number] Oral 240 Other: Weight 127.6 kg 01/25/19 03:06 01/25/19 03:06
[2019-01-25 11:49] LABS: Glucose,Whole Blood 158 mg/dL (75-99)
[2019-01-25 16:53] LABS: Glucose,Whole Blood 177 mg/dL (75-99)
[2019-01-25] MEDS: CLOPIDOGREL 75 MG TAB PO SCH (20:21)
[2019-01-25] MEDS: AZITHROMYCIN 500 MG TAB PO SCH (20:21)
[2019-01-25] MEDS: MONTELUKAST 10 MG TAB PO SCH (20:21)
[2019-01-25 20:53] LABS: Glucose,Whole Blood 173 mg/dL (75-99)
--- NOTE | 2019-01-25 21:15 | CONS ---
CONSULTATION Pb Cheng is a 68-year-old female with a history of severe asthma, who presented to the ED at [facility] with increasing shortness of breath of about 2-3 days duration. She denied any fever or chills. She also had a headache and sinus congestion and was seen in the ER. When she was seen in the ER, her pulse ox was only 88% on room air. She has a known history of obstructive sleep apnea. PAST MEDICAL HISTORY: Positive for severe asthma, obstructive sleep apnea, CVA, TIA, UTI, CVA in the past. ITP with previous history of splenectomy, history of arsenic poisoning about 20 years ago, adenoidectomy, appendectomy, back surgery, cholecystectomy, and cardiac cath. History of back surgery with rods and screws in 1991. History of MRSA infection at the surgical site of the left foot surgery. History of stents in the right renal artery. FAMILY HISTORY: Positive for cancer in the father, CVA, TIA in her mother. SOCIAL HISTORY: Patient is a never smoker. Does not drink alcohol excessively. She is a musician. MEDICATIONS: Prior to admission were diltiazem, Montelukast, Lasix, [place] Thyroid, Neurontin, Plavix. REVIEW OF SYSTEMS: Noncontributory. PHYSICAL EXAMINATION: Respiratory rate of 20, pulse rate of 82, temperature 97.9, blood pressure 126/60, O2 saturation on 2 L by nasal cannula is 96%. HEENT: Unremarkable. Chest reveals expiratory wheeze. Cardiovascular system is S1, S2. Abdomen is soft. There is trace pedal edema. LABORATORY DATA: White count is 13.8, hemoglobin of 14.9, sodium 142, potassium 3.7, chloride 108, bicarb 26, BUN 22, creatinine 0.79, glucose of 173. Chest x-ray shows no discrete infiltrate. IMPRESSION: At this time: 1. Severe persistent asthma with acute exacerbation. 2. Acute respiratory failure due to hypoxemia. 3. Obstructive sleep apnea. At this point in time, keep her on IV and aerosolized steroids, bronchodilators, Singulair, GI and DVT prophylaxis. I agree with her being seen by Cardiology. Continue on her home medications. Her prognosis is fair. Would continue on her home CPAP at this time. MMODL / IJN: [id number] /
--- NOTE | 2019-01-25 23:45 | P.PN ---
Subjective Progress Note Date: 01/25/19 Principal diagnosis: Acute asthma exacerbation Chest pain. Ruled out ACS Patient is a 68-year-old female with a known history of asthma, CVA/TIA, hypothyroidism, hypertension, history of ITP and splenectomy at age 2 and morbid obesity came to ER with the complaints of chest discomfort and shortness of breath since last night. Today morning she woke up with worsening symptoms of chest tightness which she felt more like her previous asthma exacerbation. Patient tried using nebulizers at home without much improvement. Patient also presented with headache to ER. Denied any fever or chills. Patient does have cough without sputum production. No nausea vomiting or abdominal pain or diarrhea. No dysuria. Denied any worsening leg swelling. Patient was also having tried using belching. Denied any recent illnesses or upper respiratory infections. No sick contacts or recent travel. Patient says that she was wheezing at home. Patient was given a dose of IV Solu-Medrol and breathing treatments in the ER. Patient was also hypoxic with pulse ox 88% on room air. Patient is not on home oxygen. Patient follows with Dr. ROSEANN Knapp as an outpatient. Patient says that she had fluid in the lung sometime in June 2018. Patient does take Lasix 20 mg daily at home. BNP 459 on admission. Troponin 1 negative. WBC 22.2 Chest x-ray showed Course lung markings with related to poor inspiration. this appears to be similar to old exam. No pulmonary consolidation or heart failure. Mild left base atelectasis unchanged. CT head showed multiple bilateral old cortical infarcts. No hemorrhages. 01/25/2019 Patient says that her breathing is better today. Able to ambulate to the side of the bed. Not at baseline. Continued on IV steroids and breathing treatments. Patient was seen by cardiology. ACS has been ruled out. No intervention recommended at this time. Patient has been afebrile. Leukocytosis is improving with WBC count 13.8 today. No nausea vomiting or abdominal pain. No dysuria or hematuria. Urine culture is pending at this time. Continue on ceftriaxone and azithromycin. Active Medications Acetaminophen (Tylenol Tab) 650 mg PO Q6HR PRN PRN Reason: Mild Pain or Fever > 100.5 Albuterol/Ipratropium (Duoneb 0.5 Mg-3 Mg/3 Ml Soln) 3 ml INHALATION RT-Q4H [facility] Last Admin: 01/25/19 20:37 Dose: 3 ml Documented by: Azithromycin (Zithromax) 500 mg PO Q24H [facility] Last Admin: 01/25/19 20:21 Dose: 500 mg Documented by: Budesonide (Pulmicort) 0.5 mg INHALATION RT-BID [facility] Last Admin: 01/25/19 20:37 Dose: 0.5 mg Documented by: Clopidogrel Bisulfate (Plavix) 75 mg PO [facility] Last Admin: 01/25/19 20:21 Dose: 75 mg Documented by: Diltiazem HCl (Cardizem Oral) 60 mg PO TID [facility] Last Admin: 01/25/19 20:21 Dose: 60 mg Documented by: Furosemide (Lasix) 20 mg PO DAILY [facility] Last Admin: 01/25/19 09:29 Dose: 20 mg Documented by: Gabapentin (Neurontin) 200 mg PO [facility] Last Admin: 01/25/19 20:21 Dose: 200 mg Documented by: Gabapentin (Neurontin) 100 mg PO QAM [facility] Last Admin: 01/25/19 08:19 Dose: 100 mg Documented by: Heparin Sodium (Porcine) (Heparin) 5,000 unit SQ Q8HR [facility] Last Admin: 01/25/19 16:05 Dose: 5,000 unit Documented by: Ceftriaxone Sodium 1 gm/ (Sodium Chloride) 50 mls @ 100 mls/hr IVPB Q24HR [facility] Last Admin: 01/25/19 09:28 Dose: 100 mls/hr Documented by: Ibuprofen (Motrin) 400 mg PO Q6HR PRN PRN Reason: Mild Pain or Fever > 100.5 Insulin Aspart (Novolog) 0 unit SQ [facility]; Protocol Last Admin: 01/25/19 21:24 Dose: 4 unit Documented by: Methylprednisolone Sodium Succinate (Solu-Medrol) 40 mg IV Q8HR [facility] Last Admin: 01/25/19 16:05 Dose: 40 mg Documented by: Montelukast Sodium (Singulair) 10 mg PO [facility] Last Admin: 01/25/19 20:21 Dose: 10 mg Documented by: Naloxone HCl (Narcan) 0.2 mg IV Q2M PRN PRN Reason: Opioid Reversal Thyroid ([place] Thyroid) 60 mg PO DAILY [facility] Last Admin: 01/25/19 08:20 Dose: 60 mg Documented by: Objective - Vital Signs Vital signs: Vital Signs Temp 97.9 F 11/10/19 11:15 Pulse 90 01/25/19 11:15 Resp 20 01/25/19 11:15 BP 122/58 01/25/19 11:15 Pulse Ox 94 L 01/25/19 11:15 Intake & Output 01/24/19 01/25/19 01/25/19 18:59 06:59 18:59 Intake Total 290 Balance 290 Weight 127.006 kg 127.6 kg Intake: IV 50 cefTRIAXone 1 gm In 50 Sodium Chloride 0.9% 50 ml @ 100 mls/hr IVPB Q24HR [facility] Rx#:[id number] Oral 240 - Exam PHYSICAL EXAMINATION: Patient is lying in the bed comfortably, no acute distress, awake alert and orie nted.. HEENT: Normocephalic. Neck is supple. Pupils reactive. Nostrils clear. Oral cavity is moist. Ears reveal no drainage. Neck reveals no JVD, carotid bruits, or thyromegaly. CHEST EXAMINATION: Trachea is central. Symmetrical expansion. Bilateral expiratory wheezing and scattered rhonchi. CARDIAC: Normal S1, S2 with no gallops. No murmurs ABDOMEN: Soft. Bowel sounds normal. No organomegaly. No abdominal bruits. Extremities: reveal no edema. No clubbing or cyanosis Neurologically awake, alert, oriented x3 with well-coordinated movements. No focal deficits noted Skin: No rash or skin lesions. Psychiatric: Coperative. Nonsuicidal Musculoskeletal: No joint swelling or deformity. Normal range of motion. - Labs CBC & Chem 7: 01/25/19 03:06 01/25/19 03:06 Labs: Abnormal Lab Results - Last 24 Hours (Table) 01/24/19 01/24/19 01/24/19 Range/Units 02:36 14:24 14:24 WBC 22.2 H (3.8-10.6) k/uL Neutrophils # 17.1 H (1.3-7.7) k/uL Monocytes # 1.3 H (0-1.0) k/uL Chloride (98-107) mmol/L BUN 20 H (7-17) mg/dL Glucose (74-99) mg/dL POC Glucose (mg/dL) (75-99) mg/dL Ur Leukocyte Esterase Large H (Negative) Urine WBC 17 H (0-5) /hpf Urine WBC Clumps Rare H (None) /hpf Hyaline Casts 5 H (0-2) /lpf Urine Mucus Rare H (None) /hpf 01/24/19 01/25/19 01/25/19 Range/Units 20:43 03:06 03:06 WBC 13.8 H (3.8-10.6) k/uL Neutrophils # 12.2 H (1.3-7.7) k/uL Monocytes # (0-1.0) k/uL Chloride 108 H (98-107) mmol/L BUN 22 H (7-17) mg/dL Glucose 173 H (74-99) mg/dL POC Glucose (mg/dL) 215 H (75-99) mg/dL Ur Leukocyte Esterase (Negative) Urine WBC (0-5) /hpf Urine WBC Clumps (None) /hpf Hyaline Casts (0-2) /lpf Urine Mucus (None) /hpf 01/25/19 01/25/19 Range/Units 06:22 11:48 WBC (3.8-10.6) k/uL Neutrophils # (1.3-7.7) k/uL Monocytes # (0-1.0) k/uL Chloride (98-107) mmol/L BUN (7-17) mg/dL Glucose (74-99) mg/dL POC Glucose (mg/dL) 169 H 158 H (75-99) mg/dL Ur Leukocyte Esterase (Negative) Urine WBC (0-5) /hpf Urine WBC Clumps (None) /hpf Hyaline Casts (0-2) /lpf Urine Mucus (None) /hpf Microbiology - Last 24 Hours (Table) 01/24/19 02:36 Urine Culture - Preliminary Urine,Catheterized Assessment and Plan Assessment: Chest discomfort and shortness of breath likely due to acute asthma exacerbation. ACS rule out. Acute hypoxic respiratory failure secondary to asthma exacerbation Possible left lower lobe pneumonia with significant leukocytosis at 22.2 Acute urinary tract infection. Follow up culture report. Headache on admission. 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 Continue with antibiotics in the form of ceftriaxone and azithromycin. BNP level was not very elevated at 495. Was given a dose of IV Lasix. Continue with home dose of Lasix 20 mg daily. Check urinalysis. Continue with oxygen therapy as needed and follow closely. Pulmonary and cardiology was consulted. Further recommendations based on the clinical course. Prognosis is guarded at this time. Time with Patient: Greater than 30
[2019-01-26] MEDS: IPRATROPIUM-ALBUTEROL 3 ML NEB INHALATION SCH ×7 (01:13→23:41)
[2019-01-26 06:12] LABS: Glucose,Whole Blood 192 mg/dL (75-99)
[2019-01-26] MEDS: INSULIN ASPART (NovoLOG) 100 UNIT/ML VIAL SQ SCH ×4 (06:23→21:20)
[2019-01-26] MEDS: BUDESONIDE 0.5 MG/2 ML NEBU INHALATION SCH ×2 (07:28→19:53)
[2019-01-26] MEDS: methylPREDNISolone SOD SUCCI 40 MG/ML 1 ML VIAL IV SCH ×2 (09:24→15:59)
[2019-01-26] MEDS: HEPARIN SODIUM,PORCINE 5,000 UNIT/ML 1 ML VIAL SQ SCH ×2 (09:24→15:59)
[2019-01-26] MEDS: GABAPENTIN 100 MG CAP PO SCH ×2 (09:25→21:20)
[2019-01-26] MEDS: FUROSEMIDE 20 MG TAB PO SCH (09:25)
[2019-01-26] MEDS: THYROID, PORK 30 MG TAB PO SCH (09:25)
[2019-01-26] MEDS: DILTIAZEM ORAL 60 MG TAB PO SCH ×3 (09:27→21:21)
[2019-01-26 12:08] LABS: Glucose,Whole Blood 168 mg/dL (75-99)
--- NOTE | 2019-01-26 15:14 | P.PN ---
Subjective Progress Note Date: 01/26/19 This is a 68-year-old female with past medical history significant for hypertension, hyperlipidemia, hypothyroidism, PFO and prior CVA who presented to the hospital with atypical chest discomfort. She was also having symptoms of shortness of breath with no evidence of congestive cardiac failure. She was treated for an asthma exacerbation area patientwasseenandexaminedthismorning denies any chest pain or difficulty in breathing. Hemodynamically stable. Objective - Vital Signs Vital signs: Vital Signs Temp 97.7 F 01/26/19 08:10 Pulse 88 01/26/19 11:23 Resp 18 01/26/19 08:10 BP 130/76 01/26/19 08:10 Pulse Ox 93 L 01/26/19 08:10 Intake & Output 01/25/19 01/26/19 01/26/19 18:59 06:59 18:59 Intake Total 820 600 Balance 820 600 Weight 130.4 kg Intake: IV 100 cefTRIAXone 1 gm In 100 Sodium Chloride 0.9% 50 ml @ 100 mls/hr IVPB Q24HR [facility] Rx#:[id number] Oral 720 600 Other: # Voids 2 1 - Exam CONSTITUTIONAL: No apparent distress. HEENT: Head is normocephalic. Pupils are equal, round. Sclerae anicteric. Mucous membranes of the mouth are moist. No JVD. No carotid bruit. CHEST EXAMINATION: Lungs are clear to auscultation. No chest wall tenderness is noted on palpation or with deep breathing. HEART EXAMINATION: Regular rate and rhythm. S1, S2 heard. No murmurs, gallops or rub. ABDOMEN: Soft, nontender. Positive bowel sounds. EXTREMITIES: 2+ peripheral pulses, bilateral lower extremity non-pitting edema with ANTONY hose in place and no calf tenderness. NEUROLOGIC EXAMINATION: Patient is awake, alert and oriented x3. - Labs CBC & Chem 7: 01/25/19 03:06 01/25/19 03:06 Labs: Abnormal Lab Results - Last 24 Hours (Table) 01/25/19 01/25/19 01/26/19 Range/Units 16:48 20:51 06:10 POC Glucose (mg/dL) 177 H 173 H 192 H (75-99) mg/dL 01/26/19 Range/Units 12:01 POC Glucose (mg/dL) 168 H (75-99) mg/dL Microbiology - Last 24 Hours (Table) 01/24/19 02:36 Urine Culture - Final Urine,Catheterized 01/24/19 17:52 Blood Culture - Preliminary Blood No Growth after 24 hours Assessment and Plan Plan: ASSESSMENT and Plan #1 Chest pain, atypical for angina. An acute coronary event has been ruled out. No heart failure. #2 Acute asthma exacerbation #3 Leukocytosis #4 Dyslipidemia #5 Hypertension #6 CVA #7 History of ITP and spleenectomy #8 Morbid obesity, BMI 41 Plan From cardiology's perspective, patient may be discharged home once cleared by primary. Follow-up appointment will be made in the office. DNP note has been reviewed, I agree with a documented findings and plan of care. Patient was seen and examined.
[2019-01-26 17:38] LABS: Glucose,Whole Blood 161 mg/dL (75-99)
--- NOTE | 2019-01-26 19:32 | PN ---
PROGRESS NOTE DATE OF SERVICE: 01/26/2019 This patient has been hemodynamically stable. She is less short of breath and is doing better overall. PHYSICAL EXAMINATION: Her respiratory rate is 18, pulse rate 83, temperature 97.6, blood pressure 134/72. Oxygen saturation on room air is 94%. HEENT is unremarkable. Chest reveals prolonged exhalation. No clear wheeze. Cardiovascular system reveals an S1, S2. No S3, no S4. No murmurs. Abdomen is soft. There is no pedal edema. IMPRESSION AT THIS TIME: 1. Severe asthma with acute exacerbation. 2. Previously elevated eosinophil count on 09/08/2013 of 0.3 thousand. At this point in time, switch her to oral steroids, increase her activity level. I agree with discharge planning for tomorrow. She may be a candidate for a biologic, which we can decide as an outpatient. She was counseled regarding her condition and this approach. MMODL / IJN: [id number] /
[2019-01-26 20:46] LABS: Glucose,Whole Blood 238 mg/dL (75-99)
[2019-01-26] MEDS: AZITHROMYCIN 500 MG TAB PO SCH (21:20)
[2019-01-26] MEDS: CLOPIDOGREL 75 MG TAB PO SCH (21:20)
[2019-01-26] MEDS: MONTELUKAST 10 MG TAB PO SCH (21:20)
--- NOTE | 2019-01-26 23:43 | P.PN ---
Subjective Progress Note Date: 01/26/19 Principal diagnosis: Acute asthma exacerbation Chest pain. Ruled out ACS Patient is a 68-year-old female with a known history of asthma, CVA/TIA, hypothyroidism, hypertension, history of ITP and splenectomy at age 2 and morbid obesity came to ER with the complaints of chest discomfort and shortness of breath since last night. Today morning she woke up with worsening symptoms of chest tightness which she felt more like her previous asthma exacerbation. Patient tried using nebulizers at home without much improvement. Patient also presented with headache to ER. Denied any fever or chills. Patient does have cough without sputum production. No nausea vomiting or abdominal pain or diarrhea. No dysuria. Denied any worsening leg swelling. Patient was also having tried using belching. Denied any recent illnesses or upper respiratory infections. No sick contacts or recent travel. Patient says that she was wheezing at home. Patient was given a dose of IV Solu-Medrol and breathing treatments in the ER. Patient was also hypoxic with pulse ox 88% on room air. Patient is not on home oxygen. Patient follows with Dr. ROSEANN Knapp as an outpatient. Patient says that she had fluid in the lung sometime in June 2018. Patient does take Lasix 20 mg daily at home. BNP 459 on admission. Troponin 1 negative. WBC 22.2 Chest x-ray showed Course lung markings with related to poor inspiration. this appears to be similar to old exam. No pulmonary consolidation or heart failure. Mild left base atelectasis unchanged. CT head showed multiple bilateral old cortical infarcts. No hemorrhages. 01/25/2019 Patient says that her breathing is better today. Able to ambulate to the side of the bed. Not at baseline. Continued on IV steroids and breathing treatments. Patient was seen by cardiology. ACS has been ruled out. No intervention recommended at this time. Patient has been afebrile. Leukocytosis is improving with WBC count 13.8 today. No nausea vomiting or abdominal pain. No dysuria or hematuria. Urine culture is pending at this time. Continue on ceftriaxone and azithromycin. 01/26/2019 Patient is curently ambulating in the room without much short of breath. Still requiring oxygen via nasal cannula which is being titrated down to room air. Currently being continued on DuoNeb's and steroids and antibiotics. Patient has been afebrile. Not yet Baseline. Anticipate discharge in next 24 hours. Active Medications Acetaminophen (Tylenol Tab) 650 mg PO Q6HR PRN PRN Reason: Mild Pain or Fever > 100.5 Albuterol/Ipratropium (Duoneb 0.5 Mg-3 Mg/3 Ml Soln) 3 ml INHALATION RT-Q4H [facility] Last Admin: 01/25/19 20:37 Dose: 3 ml Documented by: Azithromycin (Zithromax) 500 mg PO Q24H [facility] Last Admin: 01/25/19 20:21 Dose: 500 mg Documented by: Budesonide (Pulmicort) 0.5 mg INHALATION RT-BID [facility] Last Admin: 01/25/19 20:37 Dose: 0.5 mg Documented by: Clopidogrel Bisulfate (Plavix) [address] [facility] Last Admin: 01/25/19 20:21 Dose: 75 mg Documented by: Diltiazem HCl (Cardizem Oral) 60 mg PO TID [facility] Last Admin: 01/25/19 20:21 Dose: 60 mg Documented by: Furosemide (Lasix) 20 mg PO DAILY [facility] Last Admin: 01/25/19 09:29 Dose: 20 mg Documented by: Gabapentin (Neurontin) [address] [facility] Last Admin: 01/25/19 20:21 Dose: 200 mg Documented by: Gabapentin (Neurontin) 100 mg PO QAM [facility] Last Admin: 01/25/19 08:19 Dose: 100 mg Documented by: Heparin Sodium (Porcine) (Heparin) 5,000 unit SQ Q8HR [facility] Last Admin: 01/25/19 16:05 Dose: 5,000 unit Documented by: Ceftriaxone Sodium 1 gm/ (Sodium Chloride) 50 mls @ 100 mls/hr IVPB Q24HR [facility] Last Admin: 01/25/19 09:28 Dose: 100 mls/hr Documented by: Ibuprofen (Motrin) 400 mg PO Q6HR PRN PRN Reason: Mild Pain or Fever > 100.5 Insulin Aspart (Novolog) 0 unit SQ [facility]; Protocol Last Admin: 01/25/19 21:24 Dose: 4 unit Documented by: Methylprednisolone Sodium Succinate (Solu-Medrol) 40 mg IV Q8HR [facility] Last Admin: 01/25/19 16:05 Dose: 40 mg Documented by: Montelukast Sodium (Singulair) [address] [facility] Last Admin: 01/25/19 20:21 Dose: 10 mg Documented by: Naloxone HCl (Narcan) 0.2 mg IV Q2M PRN PRN Reason: Opioid Reversal Thyroid ([place] Thyroid) 60 mg PO DAILY [facility] Last Admin: 01/25/19 08:20 Dose: 60 mg Documented by: Objective - Vital Signs Vital signs: Vital Signs Temp 97.6 F 01/26/19 15:45 Pulse 82 01/26/19 20:07 Resp 18 01/26/19 15:45 BP 134/72 01/26/19 15:45 Pulse Ox 94 L 01/26/19 15:45 Intake & Output 01/26/19 01/26/19 01/27/19 06:59 18:59 06:59 Intake Total 780 230 Balance 780 230 Weight 130.4 kg Intake: Oral 780 230 Other: # Voids 1 - Exam PHYSICAL EXAMINATION: Patient is lying in the bed comfortably, no acute distress, awake alert and oriented.. HEENT: Normocephalic. Neck is supple. Pupils reactive. Nostrils clear. Oral cavity is moist. Ears reveal no drainage. Neck reveals no JVD, carotid bruits, or thyromegaly. CHEST EXAMINATION: Trachea is central. Symmetrical expansion. Bilateral expiratory wheezing and scattered rhonchi. CARDIAC: Normal S1, S2 with no gallops. No murmurs ABDOMEN: Soft. Bowel sounds normal. No organomegaly. No abdominal bruits. Extremities: reveal no edema. No clubbing or cyanosis Neurologically awake, alert, oriented x3 with well-coordinated movements. No focal deficits noted Skin: No rash or skin lesions. Psychiatric: Coperative. Nonsuicidal Musculoskeletal: No joint swelling or deformity. Normal range of motion. - Labs CBC & Chem 7: 01/25/19 03:06 01/25/19 03:06 Labs: Abnormal Lab Results - Last 24 Hours (Table) 01/26/19 01/26/19 01/26/19 Range/Units 06:10 12:01 17:31 POC Glucose (mg/dL) 192 H 168 H 161 H (75-99) mg/dL 01/26/19 Range/Units 20:44 POC Glucose (mg/dL) 238 H (75-99) mg/dL Microbiology - Last 24 Hours (Table) 01/24/19 17:52 Blood Culture - Preliminary Blood No Growth after 48 hours 01/24/19 02:36 Urine Culture - Final Urine,Catheterized Assessment and Plan Assessment: Chest discomfort and shortness of breath likely due to acute asthma exacerbation. ACS rule out. Acute hypoxic respiratory failure secondary to asthma exacerbation Possible left lower lobe pneumonia with significant leukocytosis at 22.2--13.8 Acute urinary tract infection. Follow up culture report. Urine culture showed no growth. Headache on admission. 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 Continue with antibiotics in the form of ceftriaxone and azithromycin. BNP level was not very elevated at 495. Was given a dose of IV Lasix. Continue with home dose of Lasix 20 mg daily. Follow-up urine culture reports. Continue with oxygen therapy as needed and follow closely. Pulmonary and cardiology was consulted. Further recommendations based on the clinical course. Time with Patient: Greater than 30
[2019-01-26] MEDS ORDERED: guaiFENesin SYRUP 100MG/5ML 200 MG/10 ML CUP PO PRN (23:54)
[2019-01-27] MEDS: HEPARIN SODIUM,PORCINE 5,000 UNIT/ML 1 ML VIAL SQ SCH ×2 (00:13→09:07)
[2019-01-27] MEDS: IPRATROPIUM-ALBUTEROL 3 ML NEB INHALATION SCH ×3 (04:27→11:15)
[2019-01-27 05:41] LABS: Basophils % (A) 0 %; Eosinophils # (A) 0.1 k/uL (0-0.7); Eosinophils % (A) 0 %; HGB 14.2 gm/dL (11.4-16.0); Lymphocytes # (A) 1.8 k/uL (1.0-4.8); Lymphocytes % (A) 12 %; MCH 31.3 pg (25.0-35.0); MCHC 32.9 g/dL (31.0-37.0); MCV 95.1 fL (80.0-100.0); Mean Platelet Volume 6.8; Monocytes # (A) 0.6 k/uL (0-1.0); Monocytes % (A) 4 %; Neutrophils # (A) 13.1 k/uL (1.3-7.7); Neutrophils % (A) 83 %; Platelet Count 331 k/uL (150-450); RBC 4.52 m/uL (3.80-5.40); RDW 13.4 % (11.5-15.5); WBC 15.7 k/uL (3.8-10.6)
[2019-01-27 05:55] LABS: African American GFR (CKD) >90 (>60 ml/min/1.73 sqM); Anion Gap 7 mmol/L; Blood Urea Nitrogen 30 mg/dL (7-17); Calcium 9.5 mg/dL (8.4-10.2); Carbon Dioxide 27 mmol/L (22-30); Chloride 110 mmol/L (98-107); Glucose 140 mg/dL (74-99); Potassium 4.4 mmol/L (3.5-5.1); Sodium 144 mmol/L (137-145)
[2019-01-27 06:12] LABS: Glucose,Whole Blood 132 mg/dL (75-99)
[2019-01-27] MEDS: INSULIN ASPART (NovoLOG) 100 UNIT/ML VIAL SQ SCH (06:23)
[2019-01-27] MEDS: BUDESONIDE 0.5 MG/2 ML NEBU INHALATION SCH (07:16)
[2019-01-27] MEDS ORDERED: predniSONE 20 MG TAB PO SCH (09:00)
[2019-01-27] MEDS: DILTIAZEM ORAL 60 MG TAB PO SCH (09:07)
[2019-01-27] MEDS: GABAPENTIN 100 MG CAP PO SCH (09:08)
[2019-01-27] MEDS: FUROSEMIDE 20 MG TAB PO SCH (09:08)
[2019-01-27] MEDS: THYROID, PORK 30 MG TAB PO SCH (09:08)
[2019-01-27 10:48] VITALS: RESP 18
--- NOTE | 2019-01-27 11:23 | P.PN ---
Subjective Progress Note Date: 01/27/19 This is a 68-year-old female with past medical history significant for hypertension, hyperlipidemia, hypothyroidism, PFO and prior CVA who presented to the hospital with atypical chest discomfort. She was also having symptoms of shortness of breath with no evidence of congestive cardiac failure. She was treated for an asthma exacerbation area patient was seen and examined this morning denies any chest pain or difficulty in breathing. Hemodynamically stable. 01/27/2019 Patient seen and examined this morning, hemodynamically stable, blood pressure 130/70 with a heart rate of 80. White blood cell count 15.7, hemoglobin 14.2, platelet count 331. Sodium 144, potassium 4.4, BUN 30 and creatinine 0.7 Objective - Vital Signs Vital signs: Vital Signs Temp 98.1 F 01/27/19 08:05 Pulse 99 01/27/19 11:16 Resp 18 01/27/19 08:05 BP 130/72 01/27/19 08:05 Pulse Ox 93 L 01/27/19 08:05 Intake & Output 01/26/19 01/27/19 01/27/19 18:59 06:59 18:59 Intake Total 780 470 600 Balance 780 470 600 Weight 129.5 kg Intake: Oral 780 470 600 Other: # Voids 1 3 2 - Exam CONSTITUTIONAL: No apparent distress. HEENT: Head is normocephalic. Pupils are equal, round. Sclerae anicteric. Mucous membranes of the mouth are moist. No JVD. No carotid bruit. CHEST EXAMINATION: Lungs are clear to auscultation. No chest wall tenderness is noted on palpation or with deep breathing. HEART EXAMINATION: Regular rate and rhythm. S1, S2 heard. No murmurs, gallops or rub. ABDOMEN: Soft, nontender. Positive bowel sounds. EXTREMITIES: 2+ peripheral pulses, bilateral lower extremity non-pitting edema with ANTONY hose in place and no calf tenderness. NEUROLOGIC EXAMINATION: Patient is awake, alert and oriented x3. - Labs CBC & Chem 7: 01/27/19 05:14 01/27/19 05:14 Labs: Abnormal Lab Results - Last 24 Hours (Table) 01/26/19 01/26/19 01/26/19 Range/Units 12:01 17:31 20:44 WBC (3.8-10.6) k/uL Neutrophils # (1.3-7.7) k/uL Chloride (98-107) mmol/L BUN (7-17) mg/dL Glucose (74-99) mg/dL POC Glucose (mg/dL) 168 H 161 H 238 H (75-99) mg/dL 01/27/19 01/27/19 01/27/19 Range/Units 05:14 05:14 06:11 WBC 15.7 H (3.8-10.6) k/uL Neutrophils # 13.1 H (1.3-7.7) k/uL Chloride 110 H (98-107) mmol/L BUN 30 H (7-17) mg/dL Glucose 140 H (74-99) mg/dL POC Glucose (mg/dL) 132 H (75-99) mg/dL Microbiology - Last 24 Hours (Table) 01/24/19 17:52 Blood Culture - Preliminary Blood No Growth after 48 hours 01/24/19 02:36 Urine Culture - Final Urine,Catheterized Assessment and Plan Plan: ASSESSMENT and Plan #1 Chest pain, atypical for angina. An acute coronary event has been ruled out. No heart failure. #2 Acute asthma exacerbation #3 Leukocytosis #4 Dyslipidemia #5 Hypertension #6 CVA #7 History of ITP and spleenectomy #8 Morbid obesity, BMI 41 Plan From cardiology's perspective, patient may be discharged home once cleared by primary. Follow-up appointment will be made in the office. DNP note has been reviewed, I agree with a documented findings and plan of care. Patient was seen and examined.
[2019-01-27 12:04] LABS: Glucose,Whole Blood 127 mg/dL (75-99)
[2019-01-27 12:49] VITALS: BP 130/80; PULSE 71; TEMP 98.2
--- NOTE | 2019-01-27 13:23 | PN ---
PROGRESS NOTE She was seen again on 01/27/2019. She is hemodynamically stable. She is less short of breath and is doing better overall. PHYSICAL EXAMINATION: On physical examination, her vital signs reveal a respiratory rate of 18, pulse rate of 71, temperature 98.2, blood pressure 130/80, O2 saturation on room air is 92%. HEENT is unremarkable. Chest reveals prolonged exhalation. No clear wheeze. Cardiovascular system reveals an S1, S2. Abdomen is soft. There is no pedal edema. IMPRESSION AT THIS TIME: 1. Severe asthma with acute exacerbation. 2. Obstructive sleep apnea. 3. Atypical chest pain. I agree with discharge planning with close outpatient followup on tapering dose of steroids and antibiotic. She was counseled regarding her condition and this approach. MMODL / NOAN: [id number] /
== END 2019-01-27 14:01 | disposition home health service (06) | DRG 202 ==
LOC: EC 12:21 → 3SCARD 17:02
PROVIDERS: ADMIT Internal Medicine; ATTEND Internal Medicine
PROC: 5A09457 Assistance with Respiratory Ventilation, 24-96 Consecutive Hours, Continuous Positive Airway Pressure (ICD-10-PCS; principal; 2019-01-24)
DX: J45.51 Severe persistent asthma with (acute) exacerbation (principal); J96.01 Acute respiratory failure with hypoxia; Z68.41 Body mass index [BMI] 40.0-44.9, adult; J98.11 Atelectasis; Q21.1 Atrial septal defect; N39.0 Urinary tract infection, site not specified; E66.01 Morbid (severe) obesity due to excess calories; I45.10 Unspecified right bundle-branch block; I69.398 Other sequelae of cerebral infarction; R20.0 Anesthesia of skin; I10 Essential (primary) hypertension; R07.89 Other chest pain; R40.2362 Coma scale, best motor response, obeys commands, at arrival to emergency department; R40.2142 Coma scale, eyes open, spontaneous, at arrival to emergency department; R40.2252 Coma scale, best verbal response, oriented, at arrival to emergency department; E78.5 Hyperlipidemia, unspecified; G47.33 Obstructive sleep apnea (adult) (pediatric); E03.9 Hypothyroidism, unspecified; G43.909 Migraine, unspecified, not intractable, without status migrainosus; D72.829 Elevated white blood cell count, unspecified; K76.9 Liver disease, unspecified; L30.9 Dermatitis, unspecified; Z79.02 Long term (current) use of antithrombotics/antiplatelets; Z79.899 Other long term (current) drug therapy; Z86.2 Personal history of diseases of the blood and blood-forming organs and certain disorders involving the immune mechanism; Z87.440 Personal history of urinary (tract) infections; Z87.442 Personal history of urinary calculi; Z86.14 Personal history of Methicillin resistant Staphylococcus aureus infection; Z87.01 Personal history of pneumonia (recurrent); Z95.828 Presence of other vascular implants and grafts; Z90.81 Acquired absence of spleen; Z90.49 Acquired absence of other specified parts of digestive tract; Z90.710 Acquired absence of both cervix and uterus; Z96.651 Presence of right artificial knee joint; Z98.890 Other specified postprocedural states; Z77.010 Contact with and (suspected) exposure to arsenic; Z91.041 Radiographic dye allergy status; Z91.048 Other nonmedicinal substance allergy status; Z80.8 Family history of malignant neoplasm of other organs or systems; Z82.3 Family history of stroke
CPT/HCPCS: 36415; 70450; 71046; 80048; 80053; 81001; 83690; 83735; 83880; 84484; 85025; 85610; 85730; 87040; 87086; 94640; 94760; 96365; 96366; 96375; 99285

== ENCOUNTER → 2019-04-02 | Outpatient (CLI) | payer MEDICARE, OTHER ==
--- NOTE | 2019-04-02 14:47 | US ---
EXAMINATION TYPE: US carotid duplex BILAT DATE OF EXAM: 04/02/2019 COMPARISON: NONE CLINICAL HISTORY: Z86.73 Personal history of transient ischemic anish. h/o stroke and tia, left and nu mbness EXAM MEASUREMENTS: RIGHT: Peak Systolic Velocity (PSV) cm/sec ----- Right CCA: 84.9 ----- Right ICA: 99.6 ----- Right ECA: 112.8 ICA/CCA ratio: 1.2 RIGHT: End Diastole cm/sec ----- Right CCA: 21.2 ----- Right ICA: 37.0 ----- Right ECA: 23.8 LEFT: Peak Systolic Velocity (PSV) cm/sec ----- Left CCA: 94.1 ----- Left ICA: 83.0 ----- Left ECA: 56.0 ICA/CCA ratio: 0.9 LEFT: End Diastole cm/sec ----- Left CCA: 27.3 ----- Left ICA: 28.2 ----- Left ECA: 15.4 VERTEBRALS (direction of flow): Right Vertebral: Antegrade Left Vertebral: Antegrade Rhythm: Normal Mild homogeneous plaque with no significant stenosis seen. IMPRESSION: Mild degree of grayscale atheromatous plaquing with no sonographically evident hemodynam ically significant stenosis within either visualized carotid arterial system. Criteria for Assigning % of Stenosis / Diameter reduction (Estimation based on the indirect measurements of the internal carotid artery velocities (ICA PSV). 1. Normal (no stenosis)=ICA PSV < 125 cm/s: ratio < 2.0: ICA EDV<40 cm/s. 2. Less than 50% stenosis=ICA PSV < 125 cm/s: ratio < 2.0: ICA EDV<40 cm/s. 3. 50 to 69% stenosis=ICA PSV of 125 to 230 cm/s: ration 2.0 ? 4.0: ICA EDV 40-100 cm/s. 4. Greater than 70% stenosis to near occlusion= ICA PSV > 230 cm/s: ratio > 4.0: ICA EDV > 100 cm/s. 5. Near occlusion= ICA PSV velocities may be low or undetectable: variable ratio and ICA EDV. 6. Total occlusion=unable to detect flow.
== END | disposition home or self-care (01) ==
LOC: RADUSWWP 14:01
PROVIDERS: ATTEND Psychiatry & Neurology Neurology
DX: Z09 Encounter for follow-up examination after completed treatment for conditions other than malignant neoplasm (principal); I65.23 Occlusion and stenosis of bilateral carotid arteries; Z86.73 Personal history of transient ischemic attack (TIA), and cerebral infarction without residual deficits
CPT/HCPCS: 93880

== ENCOUNTER 2019-05-10 11:43 | Emergency (ER) | payer MEDICARE, OTHER ==
[2019-05-10 11:59] VITALS: RESP 18
[2019-05-10] MEDS ORDERED: SODIUM CHLORIDE 0.9% 1,000 ML IV STA (12:20)
[2019-05-10] MEDS ORDERED: DIPHENOX-ATROP 2.5-0.025 MG 1 EACH TAB PO STA (12:20)
[2019-05-10] MEDS ORDERED: ONDANSETRON 4 MG/2 ML VIAL IVP STA (12:20)
--- NOTE | 2019-05-10 12:30 | ED ---
General Adult HPI - General Chief complaint: Nausea/Vomiting/Diarrhea Stated complaint: NVD Time Seen by Provider: 05/10/19 11:55 Source: patient, RN notes reviewed, old records reviewed Mode of arrival: ambulatory Limitations: no limitations - History of Present Illness Initial comments: This is a 69-year-old female presents emergency Department complaining of diarrhea since yesterday morning. Patient states states she continues to have diarrhea and is not slowing down. Patient states she feels dry and somewhat dehydrated. Patient states she's nauseated but has not vomited. Patient states occasionally she has some abdominal cramping but no specific area of pain. Patient denies chest pain difficulty breathing shortness of breath per patient denies any fever or chills. Patient denies any dysuria hematuria urinary frequency. Patient states she has not been on antibiotics recently. - Related Data Home Medications Medication Instructions Recorded Confirmed Gabapentin [Neurontin] 100 mg PO QAM 09/11/13 01/24/19 Clopidogrel [Plavix] 75 mg PO HS 09/21/13 01/24/19 Montelukast [Singulair] 10 mg PO HS 05/02/15 01/24/19 Thyroid,Pork [[place] Thyroid] 60 mg PO DAILY 05/31/15 01/24/19 Diltiazem HCl 60 mg PO TID 01/24/19 01/24/19 Furosemide [Lasix] 20 mg PO DAILY 01/24/19 01/24/19 Gabapentin [Neurontin] 200 mg PO HS 01/24/19 01/24/19 Previous Rx's Medication Instructions Recorded Cefuroxime Axetil [Ceftin] 500 mg PO BID 3 Days #6 tab 01/27/19 guaiFENesin SYRUP 100MG/5ML 200 mg PO Q6H PRN #12 cup 01/27/19 [Robitussin] predniSONE 10 mg PO DIRECTED #30 tab 01/27/19 Allergies Allergy/AdvReac Type Severity Reaction Status Date / Time adhesive Allergy Rash/Hives Verified 05/10/19 11:59 arsenic [Arsenic] Allergy Anaphylaxis Verified 05/10/19 11:59 Iodinated Contrast Media Allergy Anaphylaxis Verified 05/10/19 11:59 [Iodinated Contrast Media - IV Dye] lisinopril Allergy Rash/Hives Verified 05/10/19 11:59 ear drops Allergy Unknown SWELLING Uncoded 05/10/19 11:59 OF EAR. IV therapy for UTI AdvReac Unknown CPK Uncoded 05/10/19 11:59 ELEVATED AND MUSCLE WEAKNESS. Review of Systems ROS Statement: Those systems with pertinent positive or pertinent negative responses have been documented in the HPI. ROS Other: All systems not noted in ROS Statement are negative. Past Medical History Past Medical History: Asthma, CVA/TIA, Hypertension, Liver Disease, Renal Disease, Skin Disorder, Thyroid Disorder Additional Past Medical History / Comment(s): Recent UTI and pneumonia-resolved now. 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 Still has pancreas and kidney problems. CVAx2 last in 2010- lt index finger still numb. hx eczema. Hx kidney stones. 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 torn retina History of Any Multi-Drug Resistant Organisms: MRSA Date of last positivie culture/infection: 2011 MDRO Source:: lt foot Past Surgical History: Adenoidectomy, Appendectomy, Back Surgery, Cholecystectomy, Heart Catheterization, Hysterectomy, Joint Replacement, Orthopedic Surgery, Tonsillectomy Additional Past Surgical History / Comment(s): Hx back surgery with rods and screws 1991, had lt foot surgery 30 years ago then had lt foot surgery 2011 and developed MRSA at surgical site. Hx Repair of Rt Renal artery aneurysm , then had stents inserted into rt renal artery. Also has stents between pancreas and bile duct r/t arsenic exposure. 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 Past Psychological History: No Psychological Hx Reported Smoking Status: Never smoker Past Alcohol Use History: Occasional Past Drug Use History: None Reported - Past Family History Father Family Medical History: Cancer Mother Family Medical History: Cancer, CVA/TIA Additional Family Medical History / Comment(s): melanoma General Exam - General Exam Comments Initial Comments: GENERAL: Patient is well-developed and well-nourished. Patient is nontoxic and well- hydrated and is in mild distress. ENT: Neck is soft and supple. No significant lymphadenopathy is noted. Oropharynx is clear. Dry mucous membranes. Neck has full range of motion without eliciting any pain. EYES: The sclera were anicteric and conjunctiva were pink and moist. Extraocular movements were intact and pupils were equal round and reactive to light. Eyelids were unremarkable. PULMONARY: Unlabored respirations. Good breath sounds bilaterally. No audible rales rhonchi or wheezing was noted. CARDIOVASCULAR: There is a regular rate and rhythm without any murmurs gallops or rubs. ABDOMEN: Soft and nontender with normal bowel sounds. SKIN: Skin is clear with no lesions or rashes and otherwise unremarkable. NEUROLOGIC: Patient is alert and oriented x3. Cranial nerves II through XII are grossly intact. Motor and sensory are also intact. Normal speech, volume and content. Symmetrical smile. MUSCULOSKELETAL: Normal extremities with adequate strength and full range of motion. LYMPHATICS: No significant lymphadenopathy is noted PSYCHIATRIC: Normal psychiatric evaluation. Limitations: no limitations Course Vital Signs 05/10/19 11:55 Temperature 97.3 F L Pulse Rate 73 Respiratory 18 Rate Blood Pressure 115/84 O2 Sat by Pulse 98 Oximetry Medical Decision Making - Medical Decision Making Patient has had no diarrhea in the emergency department and her nausea subsided. - Lab Data Result diagrams: 05/10/19 12:37 05/10/19 12:37 Lab Results 05/10/19 05/10/19 05/10/19 Range/Units 12:37 12:37 12:37 WBC 7.8 (3.8-10.6) k/uL RBC 5.14 (3.80-5.40) m/uL Hgb 15.6 (11.4-16.0) gm/dL Hct 48.6 H (34.0-46.0) % MCV 94.6 (80.0-100.0) fL MCH 30.3 (25.0-35.0) pg MCHC 32.1 (31.0-37.0) g/dL RDW 13.1 (11.5-15.5) % Plt Count 235 (150-450) k/uL Neutrophils % 64 % Lymphocytes % 22 % Monocytes % 9 % Eosinophils % 2 % Basophils % 0 % Neutrophils # 5.0 (1.3-7.7) k/uL Lymphocytes # 1.7 (1.0-4.8) k/uL Monocytes # 0.7 (0-1.0) k/uL Eosinophils # 0.1 (0-0.7) k/uL Basophils # 0.0 (0-0.2) k/uL Sodium 139 (137-145) mmol/L Potassium 4.1 (3.5-5.1) mmol/L Chloride 107 (98-107) mmol/L Carbon Dioxide 24 (22-30) mmol/L Anion Gap 8 mmol/L BUN 15 (7-17) mg/dL Creatinine 0.69 (0.52-1.04) mg/dL Est GFR (CKD-EPI)AfAm >90 (>60 ml/min/1.73 sqM) Est GFR (CKD-EPI)NonAf 88 (>60 ml/min/1.73 sqM) Glucose 112 H (74-99) mg/dL Plasma Lactic Acid [place] (0.7-2.0) mmol/L Calcium 8.7 (8.4-10.2) mg/dL Total Bilirubin 0.4 (0.2-1.3) mg/dL AST 30 (14-36) U/L ALT 21 (4-34) U/L Alkaline Phosphatase 96 (38-126) U/L Total Protein 6.6 (6.3-8.2) g/dL Albumin 3.5 (3.5-5.0) g/dL Amylase 31 (30-110) U/L Lipase 29 (23-300) U/L Urine Color Yellow Urine Appearance Clear (Clear) Urine pH 5.0 (5.0-8.0) Ur Specific [place] 1.010 (1.001-1.035) Urine Protein Negative (Negative) Urine Glucose (UA) Negative (Negative) Urine Ketones Negative (Negative) Urine Blood Negative (Negative) Urine Nitrite Negative (Negative) Urine Bilirubin Negative (Negative) Urine Urobilinogen <2.0 (<2.0) mg/dL Ur Leukocyte Esterase Large H (Negative) Urine RBC 2 (0-5) /hpf Urine WBC 11 H (0-5) /hpf Ur Squamous Epith Cells <1 (0-4) /hpf Urine Bacteria Rare H (None) /hpf Urine Mucus Rare H (None) /hpf 05/10/19 Range/Units 12:37 WBC (3.8-10.6) k/uL RBC (3.80-5.40) m/uL Hgb (11.4-16.0) gm/dL Hct (34.0-46.0) % MCV (80.0-100.0) fL MCH (25.0-35.0) pg MCHC (31.0-37.0) g/dL RDW (11.5-15.5) % Plt Count (150-450) k/uL Neutrophils % % Lymphocytes % % Monocytes % % Eosinophils % % Basophils % % Neutrophils # (1.3-7.7) k/uL Lymphocytes # (1.0-4.8) k/uL Monocytes # (0-1.0) k/uL Eosinophils # (0-0.7) k/uL Basophils # (0-0.2) k/uL Sodium (137-145) mmol/L Potassium (3.5-5.1) mmol/L Chloride (98-107) mmol/L Carbon Dioxide (22-30) mmol/L Anion Gap mmol/L BUN (7-17) mg/dL Creatinine (0.52-1.04) mg/dL Est GFR (CKD-EPI)AfAm (>60 ml/min/1.73 sqM) Est GFR (CKD-EPI)NonAf (>60 ml/min/1.73 sqM) Glucose (74-99) mg/dL Plasma Lactic Acid Khanh 1.3 (0.7-2.0) mmol/L Calcium (8.4-10.2) mg/dL Total Bilirubin (0.2-1.3) mg/dL AST (14-36) U/L ALT (4-34) U/L Alkaline Phosphatase (38-126) U/L Total Protein (6.3-8.2) g/dL Albumin (3.5-5.0) g/dL Amylase (30-110) U/L Lipase (23-300) U/L Urine Color Urine Appearance (Clear) Urine pH (5.0-8.0) Ur Specific [place] (1.001-1.035) Urine Protein (Negative) Urine Glucose (UA) (Negative) Urine Ketones (Negative) Urine Blood (Negative) Urine Nitrite (Negative) Urine Bilirubin (Negative) Urine Urobilinogen (<2.0) mg/dL Ur Leukocyte Esterase (Negative) Urine RBC (0-5) /hpf Urine WBC (0-5) /hpf Ur Squamous Epith Cells (0-4) /hpf Urine Bacteria (None) /hpf Urine Mucus (None) /hpf Disposition Clinical Impression: Acute diarrhea, Nausea Disposition: HOME SELF-CARE Instructions (If sedation given, give patient instructions): Acute Diarrhea (ED), Acute Nausea and Vomiting (ED) Is patient prescribed a controlled substance at d/c from ED?: No Referrals: Vivek Ling MD [Primary Care Provider] - 1-2 days Time of Disposition: 14:02
[2019-05-10 12:44] LABS: Basophils % (A) 0 %; Eosinophils # (A) 0.1 k/uL (0-0.7); Eosinophils % (A) 2 %; HCT 48.6 % (34.0-46.0); HGB 15.6 gm/dL (11.4-16.0); Lymphocytes # (A) 1.7 k/uL (1.0-4.8); Lymphocytes % (A) 22 %; MCH 30.3 pg (25.0-35.0); MCHC 32.1 g/dL (31.0-37.0); MCV 94.6 fL (80.0-100.0); Mean Platelet Volume 8.1; Monocytes # (A) 0.7 k/uL (0-1.0); Monocytes % (A) 9 %; Neutrophils % (A) 64 %; Platelet Count 235 k/uL (150-450); RBC 5.14 m/uL (3.80-5.40); RDW 13.1 % (11.5-15.5); WBC 7.8 k/uL (3.8-10.6)
[2019-05-10 12:51] LABS: Appearance,Urine Clear (Clear); Bacteria,Urine Rare /hpf; Bilirubin,Urine Negative (Negative); Blood,Urine Negative (Negative); Color,Urine Yellow; Glucose,Urine (UA) Negative (Negative); Ketones,Urine Negative (Negative); Leukocyte Esterase,Urine Large (Negative); Mucus,Urine Rare /hpf; Nitrite,Urine Negative (Negative); Protein,Urine Negative (Negative); RBC,Urine 2 /hpf (0-5); Squamous Epithelial Cell,Urine <1 /hpf (0-4); Urobilinogen,Urine <2.0 mg/dL (<2.0); WBC,Urine 11 /hpf (0-5)
[2019-05-10 12:57] LABS: ALT 21 U/L (4-34); AST 30 U/L (14-36); African American GFR (CKD) >90 (>60 ml/min/1.73 sqM); Albumin 3.5 g/dL (3.5-5.0); Alkaline Phosphatase 96 U/L (38-126); Amylase 31 U/L (30-110); Anion Gap 8 mmol/L; Blood Urea Nitrogen 15 mg/dL (7-17); Calcium 8.7 mg/dL (8.4-10.2); Carbon Dioxide 24 mmol/L (22-30); Chloride 107 mmol/L (98-107); Glucose 112 mg/dL (74-99); Non-African American GFR(CKD) 88 (>60 ml/min/1.73 sqM); Potassium 4.1 mmol/L (3.5-5.1); Sodium 139 mmol/L (137-145); Total Bilirubin 0.4 mg/dL (0.2-1.3); Total Protein 6.6 g/dL (6.3-8.2)
[2019-05-10] MEDS ORDERED: ONDANSETRON 4 MG ODT STARTER PACK 2 TAB BTL PO STA (14:02)
[2019-05-10] MEDS ORDERED: DIPHENOX-ATROP STARTER PACK 8 TAB BTL PO STA (14:02)
[2019-05-10 14:13] VITALS: BP 127/88; PULSE 69; TEMP 98
== END 2019-05-10 14:12 | disposition home or self-care (01) ==
LOC: EC 11:43
DX: R19.7 Diarrhea, unspecified (principal); R11.0 Nausea; R10.9 Unspecified abdominal pain; J45.909 Unspecified asthma, uncomplicated; I10 Essential (primary) hypertension; E07.9 Disorder of thyroid, unspecified; Z79.02 Long term (current) use of antithrombotics/antiplatelets; Z79.890 Hormone replacement therapy; Z79.899 Other long term (current) drug therapy; Z91.048 Other nonmedicinal substance allergy status; Z88.8 Allergy status to other drugs, medicaments and biological substances; Z86.73 Personal history of transient ischemic attack (TIA), and cerebral infarction without residual deficits; Z90.49 Acquired absence of other specified parts of digestive tract; Z90.89 Acquired absence of other organs; Z90.710 Acquired absence of both cervix and uterus; Z96.651 Presence of right artificial knee joint
CPT/HCPCS: 36415; 80053; 82150; 83605; 83690; 85025; 81001; 87086; 87077; 87186; 99284; 96374; 96361; J2405; S0119

== ENCOUNTER → 2019-05-29 | Day surgery (SDC) | payer MEDICARE, OTHER | END | disposition home or self-care (01) | CPT/HCPCS: 93312; 93320; 93325; J2250; J3010 ==

== ENCOUNTER → 2019-06-04 | Outpatient (CLI) | payer MEDICARE, OTHER ==
[2019-06-04 12:22] LABS: HCT 49.6 % (34.0-46.0); MCHC 32.3 g/dL (31.0-37.0); MCV 93.1 fL (80.0-100.0); Mean Platelet Volume 8.5; Platelet Count 290 k/uL (150-450); RBC 5.33 m/uL (3.80-5.40); RDW 12.8 % (11.5-15.5); WBC 11.9 k/uL (3.8-10.6)
[2019-06-04 16:06] LABS: Anion Gap 11.2 mmol/L (4.00-12.00); BUN/Creat Ratio 27.14 Ratio (12.00-20.00); Calcium 9.8 mg/dL (8.7-10.3); Carbon Dioxide 25.8 mmol/L (21.6-31.8); Non-African American GFR(CKD) 87.2 (60.0-200.0); Potassium 4.6 mmol/L (3.5-5.5)
== END | disposition home or self-care (01) ==
LOC: LABWHC1 11:02
PROVIDERS: ATTEND Internal Medicine Interventional Cardiology
DX: I10 Essential (primary) hypertension (principal); I63.9 Cerebral infarction, unspecified
CPT/HCPCS: 36415; 80048; 85027

== ENCOUNTER 2019-07-24 07:46 | Day surgery (SDC) | payer MEDICARE, OTHER ==
[2019-07-22 15:59] VITALS: BMI 42.3
[~2019-07-24 07:46] MED LIST changes: +ALPRAZolam 0.25 MG TAB PO STA; +ASPIRIN 325 MG TAB PO STA; -DEXAMETHASONE SOD PHOSPHATE 10 MG/ML 1 ML VIAL IV ONE; -LACTATED RINGERS 1,000 ML IV SCH; -LIDOCAINE 1% 20 ML VIAL (10MG/ML) FOR IV START INTRADERMA PRN; -Pre Op ABX Message 1 EACH MISC MISCELLANE ONE
[2019-07-24] MEDS ORDERED: ALBUTEROL NEBULIZED 2.5 MG/3 ML INHALATION SCH (08:45)
[2019-07-24] MEDS ORDERED: ASPIRIN 81 MG ONE (08:53)
[2019-07-24] MEDS ORDERED: IPRATROPIUM-ALBUTEROL 3 ML NEB INHALATION STA ×2 (08:55→12:11)
[2019-07-24] MEDS ORDERED: SODIUM CHLORIDE 0.9% 1,000 ML IV ONE (08:59)
[2019-07-24 09:27] LABS: Basophils % (A) 0 %; Eosinophils # (A) 0.1 k/uL (0-0.7); Eosinophils % (A) 1 %; HCT 45.6 % (34.0-46.0); HGB 15.3 gm/dL (11.4-16.0); Lymphocytes # (A) 1.2 k/uL (1.0-4.8); Lymphocytes % (A) 11 %; MCH 31.3 pg (25.0-35.0); MCHC 33.6 g/dL (31.0-37.0); MCV 93.2 fL (80.0-100.0); Mean Platelet Volume 8.9; Monocytes # (A) 0.2 k/uL (0-1.0); Monocytes % (A) 2 %; Neutrophils # (A) 9.3 k/uL (1.3-7.7); Neutrophils % (A) 86 %; Platelet Count 321 k/uL (150-450); RDW 13.6 % (11.5-15.5); WBC 10.9 k/uL (3.8-10.6)
[2019-07-24 09:34] LABS: African American GFR (CKD) >90 (>60 ml/min/1.73 sqM); Anion Gap 9 mmol/L; Blood Urea Nitrogen 23 mg/dL (7-17); Calcium 9.8 mg/dL (8.4-10.2); Carbon Dioxide 23 mmol/L (22-30); Chloride 110 mmol/L (98-107); Glucose 137 mg/dL (74-99); Non-African American GFR(CKD) 87 (>60 ml/min/1.73 sqM); Potassium 4.6 mmol/L (3.5-5.1); Sodium 142 mmol/L (137-145)
[2019-07-24] MEDS ORDERED: MIDAZOLAM 2 MG/2 ML VIAL IVP ONE ×3 (09:35→09:52)
[2019-07-24] MEDS ORDERED: LIDOCAINE 1% INJ 10MG/ML (20 ML MDV) SQ ONE (09:35)
[2019-07-24] MEDS ORDERED: HYDROmorphone 1 MG/ML 1 ML SYRINGE IVP ONE (09:40)
[2019-07-24] MEDS ORDERED: HEPARIN SODIUM 1,000 UN/ML (10ML VL) IV ONE (09:54)
[2019-07-24] MEDS ORDERED: IOPAMIDOL-250 50ML BTL IV ONE (10:29)
[2019-07-24] MEDS ORDERED: SODIUM CHLORIDE 0.9% 1,000 ML IV SCH (10:30)
[2019-07-24] MEDS ORDERED: CLOPIDOGREL 75 MG TAB PO ONE (10:32)
--- NOTE | 2019-07-24 10:41 | P.PCN ---
Date of Procedure: 07/24/19 Operative Findings: PERCUTANEOUS CLOSURE OF PATENT FORAMEN OVALE (PFO) PERFORMING PHYSICIAN: Thong Marin MD. [facility] PROCEDURE PERFORMED: 1. Intracardiac echocardiogram imaging. 2. Successful percutaneous closure of patent foramen ovale using 35 mm Amplatzer PFO occluder with an excellent results and without any residual shunt. 3. Right atrial angiogram. INDICATION: This is a very pleasant 69-year-old female patient who sees Dr. Knapp in the office as an outpatient who was diagnosed recently with a stroke after she presented to the hospital with left eye visual disturbance. Subsequently she did have another episode of left hand numbness. She underwent an MRI which revealed multiple strokes. Subsequently she underwent transesophageal echocardiogram which revealed patent foramen ovale was evidence of [id number] shunt. APPROACH: Right common femoral vein. COMPLICATION: None. LEVEL OF SEDATION: Moderate with sedation length of 48 minutes. PROCEDURE DESCRIPTION: After obtaining informed consent, the patient was brought to the cardiac labor relations officer. The right common femoral vein was cannulated x2 using micropuncture technique under ultrasound guidance, the micropuncture wire passed easily, then I placed two 8- Nauruan sheath in the right groin. At that point, anticoagulation was initiated using heparin and the patient was given a bolus of 10,000 units of heparin IV with continuous ACT monitoring throughout the procedure. After that, the intracardiac echocardiogram probe was advanced through one of the venous sheath all the way to the right atrium where we did interrogate the interatrial septum and identified the patent foramen ovale which was measured about 35 mm. Subsequently, I did cross the patent foramen ovale using 0.035 J-wire with the backup support of multipurpose catheter. The wire was advanced all the way to the left upper pulmonary vein and subsequently the catheter was advanced over the wire to the left upper pulmonary vein. The 0.035 J-wire was pulled out and then I advanced a dami wire. Subsequently, the multipurpose catheter was withdrawn out and the wire was left in the left upper pulmonary vein. After that, I did prep the Amplatzer PFO occluder under saline. The device was loaded into the perforator loader, which was attached to the sheath. Subsequently, I did exchange my 8-Nauruan sheath into the Shuttle sheath over a 0 .035 dami wire. The sheath was advanced all the way under fluoroscopy guidance to the left atrium. Subsequently, the dilator of the sheath was withdrawn out along with the wire. After that, I did load the Amplatzer PFO occluder under continuous saline flush to the sheath. The device was advanced all the way through the sheath were I did where I did deploy initially the left atrial occluder and then I pulled back the sheath and the left atrial occluder all the way to the interatrial septum and then I deployed the right atrial occluder after that. Before I released the device, I did interrog ate the septum using ice images on multiple views. After I realized that the device was stable enough and in good position the device was released. Interrogation using ice was also performed after the device was released. By the end I did right atrial angiogram. The procedure was completed without any complication. POSTPROCEDURE MANAGEMENT: 1. Dual anti-platelet therapy. 2. An echo in 24 hours, in 1 week, in 4 weeks, as well as in 6 months. 5. Follow up with Dr. Knapp
[2019-07-24] MEDS ORDERED: ONDANSETRON 4 MG/2 ML VIAL ONE (10:53)
[2019-07-24] MEDS: DILTIAZEM ORAL 60 MG TAB PO SCH ×2 (16:35→21:56)
[2019-07-24 16:53] VITALS: RESP 18
[2019-07-24] MEDS: IPRATROPIUM-ALBUTEROL 3 ML NEB INHALATION SCH (19:58)
[2019-07-24] MEDS: BUDESONIDE 0.5 MG/2 ML NEBU INHALATION SCH (19:58)
[2019-07-24] MEDS ORDERED: MONTELUKAST 10 MG TAB PO SCH (21:00)
[2019-07-24] MEDS ORDERED: CLOPIDOGREL 75 MG TAB PO SCH (21:00)
[2019-07-24] MEDS ORDERED: GABAPENTIN 100 MG CAP PO SCH (21:00)
[2019-07-25] MEDS ORDERED: THYROID, PORK 30 MG TAB PO SCH (06:30)
--- NOTE | 2019-07-25 07:25 | XR ---
EXAMINATION TYPE: XR chest 2V DATE OF EXAM: 07/25/2019 HISTORY: ASD/PFO placement. REFERENCE: Previous study dated 01/24/2019. FINDINGS: Heart is mildly enlarged. There is some scarring or atelectasis at the left lung base. Ther e are increased markings diffusely throughout the lungs. Pleural spaces are clear. IMPRESSION: 1. MILD CARDIOMEGALY. 2. SCARRING VERSUS ATELECTASIS, LEFT LUNG BASE.
[2019-07-25] MEDS: DILTIAZEM ORAL 60 MG TAB PO SCH (07:48)
[2019-07-25] MEDS: BUDESONIDE 0.5 MG/2 ML NEBU INHALATION SCH (07:56)
[2019-07-25] MEDS: IPRATROPIUM-ALBUTEROL 3 ML NEB INHALATION SCH (07:56)
--- NOTE | 2019-07-25 08:41 | P.DS ---
Providers Date of admission: July 232019 Attending physician: Thong Marin Primary care physician: [facility] Hospital Course: This is a 69-year-old female patient was diagnosed recently with a stroke and was found to have patent foramen ovale. She underwent yesterday successful percutaneous closure of patent foramen ovale using 35 mm Amplatzer PFO occluder. The procedure was performed from the right groin and right groin is soft and nontender and without any bruises. When I saw the patient earlier today, she has been dizzy and experiencing symptoms of vertigo. I'm going to get the patient up and around and if she is feeling good she is going to be discharged home on dual antiplatelet therapy and I will follow-up with the patient next week in the office. Plan - Discharge Summary Discharge Rx Participant: No New Discharge Prescriptions: Continue Gabapentin [Neurontin] 100 mg PO QAM Clopidogrel [Plavix] 75 mg PO HS Montelukast [Singulair] 10 mg PO HS Thyroid,Pork [[place]illy Thyroid] 60 mg PO DAILY Gabapentin [Neurontin] 200 mg PO HS Furosemide [Lasix] 40 mg PO DAILY Diltiazem HCl 60 mg PO TID Aspirin 81 mg PO DAILY Budesonide [Pulmicort] 0.5 mg INHALATION BID Albuterol Nebulized [Ventolin Nebulized] 2.5 mg INHALATION BID Discharge Medication List Gabapentin [Neurontin] 100 mg PO QAM 09/11/13 [History] Clopidogrel [Plavix] 75 mg PO HS 09/21/13 [History] Montelukast [Singulair] 10 mg PO HS 05/02/15 [History] Thyroid,Pork [[place] Thyroid] 60 mg PO DAILY 05/31/15 [History] Diltiazem HCl 60 mg PO TID 01/24/19 [History] Furosemide [Lasix] 40 mg PO DAILY 01/24/19 [History] Gabapentin [Neurontin] 200 mg PO HS 01/24/19 [History] Albuterol Nebulized [Ventolin Nebulized] 2.5 mg INHALATION BID 05/27/19 [History] Aspirin 81 mg PO DAILY 05/27/19 [History] Budesonide [Pulmicort] 0.5 mg INHALATION BID 05/27/19 [History] Follow up Appointment(s)/Referral(s): Thong Marin MD [STAFF PHYSICIAN] - 1 Week (PFO appointments made- see sheet on chart)
[2019-07-25] MEDS ORDERED: ONDANSETRON 4 MG/2 ML VIAL IVP STA (08:49)
[2019-07-25] MEDS ORDERED: GABAPENTIN 100 MG CAP PO SCH (09:00)
[2019-07-25] MEDS ORDERED: ASPIRIN 81 MG PO SCH (09:00)
[2019-07-25] MEDS ORDERED: FUROSEMIDE 40 MG TAB PO SCH (09:00)
[2019-07-25] MEDS ORDERED: ASPIRIN 325 MG TAB PO SCH (09:00)
[2019-07-25] MEDS ORDERED: CLOPIDOGREL 75 MG TAB PO SCH (09:00)
[2019-07-25 09:38] VITALS: BP 133/98; PULSE 77; TEMP 97.7
--- NOTE | 2019-07-25 11:05 | ECHOF ---
Referral Reason:Post ASD/PFO Insertion MEASUREMENTS -------- HEIGHT: 172.7 cm WEIGHT: 129.3 kg BP: IVSd: 1.2 cm (0.6 - 1.1) LVIDd: 4.3 cm (3.9 - 5.3) LVPWd: 1.2 cm (0.6 - 1.1) IVSs: 1.2 cm LVIDs: 2.8 cm LVPWs: 2.0 cm EDV(Teich): 83 ml ESV(Teich): 29 ml EF(Teich): 65 % %FS: 35 % SV(Teich): 54 ml FINDINGS -------- Sinus rhythm. This was a technically adequate study. Limited Study for PFO closure device The left ventricular size is normal. There is mild concentric left ventricular hypertrophy. Overa ll left ventricular systolic function is normal with, an EF between 55 - 60 %. There is an interatrial closure device in place without evidence of shunt. There is no pericardial effusion. CONCLUSIONS -------- 1. Limited Study for PFO closure device 2. There is mild concentric left ventricular hypertrophy. 3. Overall left ventricular systolic function is normal with, an EF between 55 - 60 %. 4. There is an interatrial closure device in place without evidence of shunt. 5. There is no pericardial effusion. LEGISLATIVE ASSISTANT: Annalise Guevara [facility]
== END 2019-07-25 12:00 | disposition home or self-care (01) ==
LOC: CATHCVL 07:46 → 3SCARD 15:59 → CATHCVL 07-25 12:00
PROVIDERS: ATTEND Internal Medicine Interventional Cardiology
DX: Q21.1 Atrial septal defect (principal); I10 Essential (primary) hypertension; E78.5 Hyperlipidemia, unspecified; D69.3 Immune thrombocytopenic purpura; E78.00 Pure hypercholesterolemia, unspecified; E66.9 Obesity, unspecified; Z79.02 Long term (current) use of antithrombotics/antiplatelets; Z79.82 Long term (current) use of aspirin; Z79.890 Hormone replacement therapy; Z79.899 Other long term (current) drug therapy; Z68.41 Body mass index [BMI] 40.0-44.9, adult; Z86.73 Personal history of transient ischemic attack (TIA), and cerebral infarction without residual deficits
CPT/HCPCS: 94640 ×3; 93308; 93580; 93662; 86900; 86901; 80048; 85025; 86850; 71046; C1759; C1769 ×4; C1894; C1817; J2250; J2405 ×2; J0690; J2001; J1644; J1170; Q9966; 93581

== ENCOUNTER → 2020-05-27 | Outpatient (CLI) | payer MEDICARE, OTHER ==
--- NOTE | 2020-05-27 12:27 | CT ---
EXAMINATION TYPE: CT abdomen pelvis wo con DATE OF EXAM: 05/27/2020 HISTORY: Right flank pain CT DLP: 2383.3 mGycm. Automated Exposure Control for Dose Reduction was Utilized. TECHNIQUE: CT scan of the abdomen and pelvis is performed without oral or IV contrast. COMPARISON: NONE FINDINGS: Within the limitations of a non-contrast study, the following observations are made. LUNG BASES: Evaluation is suboptimal as patient unable to hold breath. There is increased opacity cou ld reflect atelectasis and/or edema in the lung bases. LIVER/GB: Heterogeneous hypodense appearance to liver consistent with areas of diffuse fatty infiltra tion. Cholecystectomy clips are seen. PANCREAS: No significant abnormality is seen. SPLEEN: Somewhat small lobulated spleen. ADRENALS: Slightly low dense nodular thickening left adrenal gland favors benign lipid rich hyperplas ia. KIDNEYS: Areas of cortical thinning and volume loss in the right kidney. Some punctate calcifications and subcentimeter hypodense lesions in the right kidney are noted. No hydronephrosis present bilater ally. I count approximately 4-5 right-sided calcifications measuring up to 5 mm in size, largest axia l image 80. BOWEL: A few scattered diverticula in the left colon. No CT evidence for acute diverticulitis. GENITAL ORGANS: Uterus surgically absent or markedly atrophic. Occasional scattered tiny bilateral pe lvic phleboliths. LYMPH NODES: No greater than 1cm abdominal or pelvic lymph nodes are appreciated. OSSEOUS STRUCTURES: Postsurgical change L4-L5 level moderate to severe disc space narrowing at this l evel. Mild disc space narrowing and vacuum disc phenomenon L5-S1 level. Multilevel spurring in the sp ine. OTHER: No significant additional abnormality is seen. IMPRESSION: Asymmetric areas of volume loss in the right kidney. There are 4-5 calcifications near ar eas of volume loss and subcentimeter cysts. Uncertain if reflects true nephrolithiasis. No hydronephr osis or obstructing ureteral calculi seen bilaterally. No left-sided nephrolithiasis.
== END | disposition home or self-care (01) ==
LOC: RADCTMAIN 11:07
PROVIDERS: ATTEND Urology
DX: R93.421 Abnormal radiologic findings on diagnostic imaging of right kidney (principal); N28.1 Cyst of kidney, acquired
CPT/HCPCS: 74176

== ENCOUNTER → 2022-01-01 | Outpatient (CLI) | payer MEDICARE, OTHER ==
--- NOTE | 2022-01-01 14:44 | XR ---
EXAMINATION TYPE: XR KUB DATE OF EXAM: 01/01/2022 2:34 PM CLINICAL HISTORY: Kidney calculus. TECHNIQUE: Two supine KUB images of the abdomen are obtained. COMPARISON: CT a/p dated 05/27/2020. FINDINGS: Scattered colonic fecal material somewhat obscures known right-sided renal calculi. Suspect roughly 4-5 small renal calculi L3 level measuring up to 6 to 7 mm in size. Scattered tiny inferior pelvic phleboliths obscured by colonic fecal debris in the rectum. Surgical change L4-L5 level redemonstrated. Cholecystectomy clips are redemonstrated. Multilevel spur ring in the spine. Moderate axial joint space loss both hips redemonstrated. Overall nonobstructive b owel gas pattern noted. IMPRESSION: As above.
== END | disposition home or self-care (01) ==
LOC: RADXRMAIN 14:10
PROVIDERS: ATTEND Urology
DX: N20.0 Calculus of kidney (principal); Z90.49 Acquired absence of other specified parts of digestive tract
CPT/HCPCS: 74018